=== PATIENT | female | born 1970 | race Caucasian/White ===

== ENCOUNTER 2017-07-22 14:32 | Inpatient (IN) | payer OTHER ==
[~2017-07-22] VITALS: Ht 165.1 cm; Wt 100.8 kg
[~2017-07-22 14:32] MED LIST changes: -ALLEGRA ALLERG180 MG PO; -BASAGLAR K100 UNIT/1 SC; -Benadryl 50 mg50 MG PO; -Cardizem CD 24240 MG PO; -DILT120 PO; -DULO60 PO; -Novolog Fl100 UNIT/1 SC; -Pepcid40 MG PO; -Women's Daily1 EACH PO; -XARELTO20 MG PO
[2017-07-22 15:25] LABS: Chloride (POC) 98 mmol/L (98-108); Creatinine (POC) 0.6 mg/dL (0.6-1.0); Glucose (ISTAT POC) 469 mg/dL (70-99); Hemoglobin (POC) 15.3 g/dL (12.0-16.0); Potassium (POC) 4.2 mmol/L (3.5-5.5); Sodium (POC) 134 mmol/L (135-148); Total CO2 (POC) 26 mmol/L (21-32)
[2017-07-22 15:31] LABS: BASOPHILS ABSOLUTE AUTO 0.03 K/mm3 (0.00-0.23); BASOPHILS PERCENT AUTO 1 % (0-2); EOSINOPHILS ABSOLUTE AUTO 0.08 K/mm3 (0.00-0.68); EOSINOPHILS PERCENT AUTO 1 % (0-6); Hematocrit 43.1 % (33.0-51.0); Hemoglobin 14.8 g/dL (11.5-16.0); IMMATURE GRAN ABSOLUTE AUTO 0.02 K/mm3 (0.00-0.10); IMMATURE GRAN PERCENT AUTO 0 % (0-1); LYMPHOCYTES ABSOLUTE AUTO 1.66 K/mm3 (0.84-5.20); LYMPHOCYTES PERCENT AUTO 26 % (21-46); MONOCYTES ABSOLUTE AUTO 0.49 K/mm3 (0.16-1.47); MONOCYTES PERCENT AUTO 8 % (4-13); Mean Corpuscular HGB Conc 34.3 g/dL (31.5-36.5); Mean Corpuscular Volume 96 fL (80-100); Mean Platelet Volume 10.6 fL (9.1-12.4); NEUTROPHILS ABSOLUTE AUTO 4.08 K/mm3 (1.96-9.15); NEUTROPHILS PERCENT AUTO 64 % (41-73); Platelet Count 175 K/mm3 (150-400); RDW Coefficient Variation 12.9 % (11.7-14.2); RDW Standard Deviation 46.3 fL (35.1-46.3); Red Blood Cell Count 4.49 M/mm3 (3.80-5.20); White Blood Cell Count 6.36 K/mm3 (4.00-11.30)
[2017-07-22 15:55] LABS: Alanine Aminotransfer (ALT/SGP 120 U/L (12-78); Albumin, Blood 2.9 g/dL (3.4-5.0); Albumin/Globulin Ratio 0.7 (0.8-1.8); Alk Phos 274 U/L (50-136); Anion Gap 9 mmol/L (6-16); Aspartate Aminotrans (AST/SGOT 119 U/L (12-37); Bilirubin, Total 0.4 mg/dL (0.1-1.0); Blood Urea Nitrogen 12 mg/dL (8-24); Bun/Creatinine Ratio 19.9 (12.0-20.0); CO2, Blood 25 mmol/L (21-32); Calcium, Blood 8.7 mg/dL (8.5-10.1); Chloride, Blood 100 mmol/L (98-108); Globulin, Blood 4.3 g/dL (2.2-4.0); Glomerular Filtration Rate >60 (60-); Glucose, Blood 442 mg/dL (70-99); Potassium, Blood 4.2 mmol/L (3.5-5.5); Sodium, Blood 134 mmol/L (136-145); Total Protein, Blood 7.2 g/dL (6.4-8.2); Troponin I <0.015 ng/mL (0.000-0.040)
[2017-07-22 16:01] LABS: Source, Urine Clean Catch
[2017-07-22 16:06] LABS: Bilirubin, Urine Neg (Neg); Blood, Urine Neg (Neg); Glucose Qualitative, Urine 4+ (Neg); Ketones, Urine Neg (Neg); Leukocyte Esterase, Urine Neg (Neg); Nitrite, Urine Neg (Neg); Protein, Urine Neg (Neg); Urobilinogen, Urine NORM (Normal)
[2017-07-22 16:11] LABS: Color, Urine Pale Yellow (P-Yellow)
[2017-07-22 16:12] LABS: Appearance, Urine Clear (Clear)
[2017-07-23 04:19] LABS: BASOPHILS ABSOLUTE AUTO 0.02 K/mm3 (0.00-0.23); BASOPHILS PERCENT AUTO 0 % (0-2); EOSINOPHILS ABSOLUTE AUTO 0.08 K/mm3 (0.00-0.68); EOSINOPHILS PERCENT AUTO 2 % (0-6); Hematocrit 37.9 % (33.0-51.0); Hemoglobin 12.5 g/dL (11.5-16.0); IMMATURE GRAN ABSOLUTE AUTO 0.03 K/mm3 (0.00-0.10); IMMATURE GRAN PERCENT AUTO 1 % (0-1); LYMPHOCYTES ABSOLUTE AUTO 2.02 K/mm3 (0.84-5.20); LYMPHOCYTES PERCENT AUTO 38 % (21-46); MONOCYTES ABSOLUTE AUTO 0.43 K/mm3 (0.16-1.47); MONOCYTES PERCENT AUTO 8 % (4-13); Mean Corpuscular HGB 32.6 pg (26.0-34.0); Mean Platelet Volume 10.2 fL (9.1-12.4); NEUTROPHILS ABSOLUTE AUTO 2.79 K/mm3 (1.96-9.15); NEUTROPHILS PERCENT AUTO 52 % (41-73); Platelet Count 149 K/mm3 (150-400); RDW Coefficient Variation 13.2 % (11.7-14.2); RDW Standard Deviation 47.8 fL (35.1-46.3); Red Blood Cell Count 3.84 M/mm3 (3.80-5.20); White Blood Cell Count 5.37 K/mm3 (4.00-11.30)
[2017-07-23 04:21] LABS: Mean Corpuscular Volume 99 fL (80-100)
[2017-07-23 04:44] LABS: Anion Gap 8 mmol/L (6-16); Blood Urea Nitrogen 10 mg/dL (8-24); Bun/Creatinine Ratio 19.2 (12.0-20.0); CO2, Blood 24 mmol/L (21-32); Calcium, Blood 7.7 mg/dL (8.5-10.1); Chloride, Blood 103 mmol/L (98-108); Creatinine, Blood 0.52 mg/dL (0.40-1.00); Glomerular Filtration Rate >60 (60-); Glucose, Blood 384 mg/dL (70-99); Potassium, Blood 3.9 mmol/L (3.5-5.5); Sodium, Blood 135 mmol/L (136-145)
[2017-07-23 04:46] LABS: Thyroid Stimulating Hormone 0.747 uIU/mL (0.360-4.800)
[2017-07-23 06:52] LABS: Alanine Aminotransfer (ALT/SGP 108 U/L (12-78); Albumin, Blood 2.6 g/dL (3.4-5.0); Albumin/Globulin Ratio 0.8 (0.8-1.8); Alk Phos 220 U/L (50-136); Aspartate Aminotrans (AST/SGOT 96 U/L (12-37); Bilirubin, Direct <0.1 mg/dL (0.0-0.3); Bilirubin, Indirect Unable to Calculate mg/dL (0.1-0.7); Bilirubin, Total 0.4 mg/dL (0.1-1.0); Globulin, Blood 3.3 g/dL (2.2-4.0); Total Protein, Blood 5.9 g/dL (6.4-8.2)
[2017-07-23] MEDS ORDERED: LEVEMIR FL100 UNIT/1 SC (18:00)
[2017-07-23] MEDS ORDERED: Cardizem CD 24240 MG PO (18:03)
[2017-07-23] MEDS ORDERED: METF500 PO (18:04)
[2018-03-02] MEDS ORDERED: XARELTO20 MG PO (15:06)
[2018-03-02] MEDS ORDERED: DILT120 PO (15:06)
[2018-03-02] MEDS ORDERED: BASAGLAR K100 UNIT/1 SC ×2 (15:07→15:08)
[2018-03-02] MEDS ORDERED: ALLEGRA ALLERG180 MG PO (15:07)
[2018-03-02] MEDS ORDERED: DULO60 PO (15:07)
[2018-03-02] MEDS ORDERED: Novolog Fl100 UNIT/1 SC (15:08)
[2018-03-02] MEDS ORDERED: Women's Daily1 EACH PO (15:09)
[2018-03-02] MEDS ORDERED: Benadryl 50 mg50 MG PO (17:26)
[2018-03-02] MEDS ORDERED: Pepcid40 MG PO (17:26)
[2018-03-02] MEDS ORDERED: Ultram50 MG PO (17:26)
== END 2017-07-23 18:34 | disposition home or self-care (01) | DRG 310 ==
LOC: ER 14:32 → ICUW 17:55
PROVIDERS: Emergency Medicine; Hospitalist; Internal Medicine
PROC: 3E0234Z Introduction of Serum, Toxoid and Vaccine into Muscle, Percutaneous Approach (ICD-10-PCS; principal; 2017-07-23)
DX: I48.91 Unspecified atrial fibrillation (principal); E11.65 Type 2 diabetes mellitus with hyperglycemia; K76.0 Fatty (change of) liver, not elsewhere classified; I10 Essential (primary) hypertension; Z23 Encounter for immunization; F32.9 Major depressive disorder, single episode, unspecified; F17.210 Nicotine dependence, cigarettes, uncomplicated; Z78.0 Asymptomatic menopausal state; I25.2 Old myocardial infarction; Z79.4 Long term (current) use of insulin; Z79.899 Other long term (current) drug therapy; Z88.1 Allergy status to other antibiotic agents; Z88.5 Allergy status to narcotic agent; Z88.0 Allergy status to penicillin; Z88.8 Allergy status to other drugs, medicaments and biological substances
CPT/HCPCS: 36415; 71046; 80047; 80048; 80053; 80076; 80400; 81003; 82010; 82533; 82947; 83001; 84443; 84484; 85014; 85025; 87081; 93306; 96365; 96366; 99285; G0008; J0834; J1815; J7030; Q2038

== ENCOUNTER → 2017-07-22 | Outpatient (CLI) | payer OTHER ==
[~2017-07-22] MED LIST: ALBU90OI; ALBU90OI61 INH; ALLEGRA ALLERG180 MG PO; ALPR.25 PO; ALPR.5 PO; ATEN50 PO; BASAGLAR K100 UNIT/1 SC; BIOTIN5 MG PO; Benadryl 50 mg50 MG PO; CAMPHETO TOP; CEPH500 PO; CETI5 PO; CIPDEXSU OT; CIPR500 PO; CLIN300 PO; CYCL10 PO; Cardizem CD 24240 MG PO; DILT120 PO; DIPATR PO; DULO30 PO; DULO60 PO; FAMO20 PO; FENO48; FLU; GABA100 PO; HYDACE5 PO; IBUP600 PO; IBUP800 PO; INSDET100 SC; INSU100I6; INSULANPEN; LEVEMIR FL100 UNIT/1; LEVEMIR FL100 UNIT/1 SC; LORA1 PO; Lyrica300 MG PO; MECL25 PO; METF500 PO; METO10 PO; NAPR250 PO; NAPR500 PO; Novolog Fl100 UNIT/1 SC; OXYACE5T PO; PROACE100 PO; PROC5 PO; PROM25 PO; Pepcid40 MG PO; RXALBOI INH; RXANTBENOT AU; RXONDA4ODT MM; RXOXYACE PO; RXTRAM50 PO; SULTRIDS PO; SULTRISS PO; TRAM50 PO; TRIHYD253B; Tylenol325 MG PO; Ultram50 MG PO; Women's Daily1 EACH PO; XARELTO20 MG PO; Zofran Odt4 MG SL; [UNRECOGNIZED DRUG - OTHER]; [UNRECOGNIZED DRUG - OTHER] NS; [UNRECOGNIZED DRUG - REMARK]
[2017-07-22 13:23] LABS: Bilirubin, Urine Neg (Neg); Blood, Urine Neg (Neg); Glucose Qualitative, Urine 4+ (Neg); Ketones, Urine Neg (Neg); Leukocyte Esterase, Urine 1+ (Neg); Nitrite, Urine Neg (Neg); Protein, Urine Neg (Neg); Urobilinogen, Urine NORM (Normal)
[2017-07-22 13:30] LABS: Appearance, Urine Clear (Clear); Color, Urine Yellow (P-Yellow)
[2017-07-22 13:32] LABS: Bacteria Few /hpf; Red Blood Cells, Urine 0-2 /hpf (0-2); Squamous Epithelial Cells Few /hpf (Few)
== END | disposition home or self-care (01) ==
LOC: LAB 13:11
PROVIDERS: Internal Medicine Hematology & Oncology
DX: R10.2 Pelvic and perineal pain (principal)
CPT/HCPCS: 81001; 87077; 87086; 87186

== ENCOUNTER 2018-09-06 17:10 | Emergency (ER) | payer OTHER ==
[~2018-09-06] VITALS: Ht 165.1 cm; Wt 90.7 kg
[~2018-09-06 17:10] MED LIST changes: +ALLEGRA ALLERG180 MG PO; +BASAGLAR K100 UNIT/1 SC; +Benadryl 50 mg50 MG PO; +Cardizem CD 24240 MG PO; +DILT120 PO; +Novolog100 UNIT/2 SC; +Pepcid40 MG PO; +Women's Daily1 EACH PO; +XARELTO20 MG PO
[2018-09-06 18:07] LABS: BASOPHILS ABSOLUTE AUTO 0.04 K/mm3 (0.00-0.23); BASOPHILS PERCENT AUTO 1 % (0-2); EOSINOPHILS PERCENT AUTO 1 % (0-6); Hematocrit 47.4 % (33.0-51.0); Hemoglobin 16.2 g/dL (11.5-16.0); IMMATURE GRAN ABSOLUTE AUTO 0.03 K/mm3 (0.00-0.10); IMMATURE GRAN PERCENT AUTO 0 % (0-1); LYMPHOCYTES ABSOLUTE AUTO 3.56 K/mm3 (0.84-5.20); LYMPHOCYTES PERCENT AUTO 41 % (21-46); MONOCYTES ABSOLUTE AUTO 0.65 K/mm3 (0.16-1.47); MONOCYTES PERCENT AUTO 8 % (4-13); Mean Corpuscular HGB 32.1 pg (26.0-34.0); Mean Corpuscular HGB Conc 34.2 g/dL (31.5-36.5); Mean Corpuscular Volume 94 fL (80-100); Mean Platelet Volume 10.1 fL (9.1-12.4); NEUTROPHILS ABSOLUTE AUTO 4.21 K/mm3 (1.96-9.15); NEUTROPHILS PERCENT AUTO 49 % (41-73); Platelet Count 250 K/mm3 (150-400); RDW Coefficient Variation 13.1 % (11.7-14.2); RDW Standard Deviation 44.8 fL (35.1-46.3); Red Blood Cell Count 5.05 M/mm3 (3.80-5.20); White Blood Cell Count 8.59 K/mm3 (4.00-11.30)
[2018-09-06] MEDS ORDERED: DULO60 PO (18:23)
[2018-09-06] MEDS ORDERED: Simvastatin10 MG PO (18:24)
[2018-09-06] MEDS ORDERED: NAPR220 PO (18:24)
[2018-09-06] MEDS ORDERED: ACET500 PO (18:25)
[2018-09-06 18:28] LABS: Alanine Aminotransfer (ALT/SGP 57 U/L (12-78); Albumin, Blood 3.5 g/dL (3.4-5.0); Albumin/Globulin Ratio 0.9 (0.8-1.8); Alk Phos 150 U/L (50-136); Anion Gap 7 mmol/L (6-16); Aspartate Aminotrans (AST/SGOT 55 U/L (12-37); Bilirubin, Total 0.6 mg/dL (0.1-1.0); Blood Urea Nitrogen 9 mg/dL (8-24); Bun/Creatinine Ratio 12.7 (12.0-20.0); CO2, Blood 25 mmol/L (21-32); Calcium, Blood 9.4 mg/dL (8.5-10.1); Chloride, Blood 109 mmol/L (98-108); Creatinine, Blood 0.71 mg/dL (0.40-1.00); Globulin, Blood 4.1 g/dL (2.2-4.0); Glomerular Filtration Rate >60 (60-); Glucose, Blood 143 mg/dL (70-99); Potassium, Blood 3.8 mmol/L (3.5-5.5); Sodium, Blood 141 mmol/L (136-145); Total Protein, Blood 7.6 g/dL (6.4-8.2)
[2018-09-06] MEDS ORDERED: GAVILAX17 GM PO (18:28)
[2018-09-06 18:30] LABS: Troponin I <0.015 ng/mL (0.000-0.040)
[2018-09-06] MEDS ORDERED: IBUP400 PO (19:57)
[2018-09-06] MEDS ORDERED: Aspirin EC81 MG PO (20:01)
== END 2018-09-06 22:25 | disposition home or self-care (01) ==
LOC: ER 17:10
PROVIDERS: Emergency Medicine
DX: I48.91 Unspecified atrial fibrillation (principal); E11.9 Type 2 diabetes mellitus without complications; I25.10 Atherosclerotic heart disease of native coronary artery without angina pectoris; I10 Essential (primary) hypertension; G43.909 Migraine, unspecified, not intractable, without status migrainosus; F17.200 Nicotine dependence, unspecified, uncomplicated; F43.10 Post-traumatic stress disorder, unspecified; Z87.442 Personal history of urinary calculi; Z79.4 Long term (current) use of insulin; Z79.899 Other long term (current) drug therapy
CPT/HCPCS: 36415; 70450; 71046; 80053; 83690; 83735; 84484; 85025; 93005; 93010; 96365; 96375; 99285-25; J2060; J3475

== ENCOUNTER 2018-12-08 07:29 | Day surgery (SDC) | payer OTHER ==
[~2018-12-08] VITALS: Ht 165.1 cm; Wt 94.3 kg
[~2018-12-08 07:29] MED LIST changes: +ACET500 PO; +Aspirin EC81 MG PO; +BIOTIN5000 MC1 SL; +DULO60 PO; +GAVILAX17 GM PO; +IBUP400 PO; +NAPR220 PO; +Simvastatin10 MG PO; +XYZAL5 MG PO
[2018-12-08] MEDS ORDERED: CLINGEL (08:04)
--- NOTE | 2018-12-08 08:22 | NUR ---
12/08/18 [address] QUINTEROS ABOUT PT'S CBG 453
== END 2018-12-08 08:58 | disposition home or self-care (01) ==
LOC: ORSCSDS 07:29
DX: K92.1 Melena (principal); K21.9 Gastro-esophageal reflux disease without esophagitis; R13.10 Dysphagia, unspecified; R11.2 Nausea with vomiting, unspecified; R15.0 Incomplete defecation; Z53.9 Procedure and treatment not carried out, unspecified reason
CPT/HCPCS: 82947; J7120

== ENCOUNTER 2019-01-11 11:10 | Emergency (ER) | payer OTHER ==
[~2019-01-11] VITALS: Ht 165.1 cm; Wt 89.8 kg
[~2019-01-11 11:10] MED LIST changes: +CLINGEL
[2019-01-11] MEDS ORDERED: BASAGLAR K100 UNIT/1 SC (11:37)
[2019-01-11 11:56] LABS: BASOPHILS ABSOLUTE AUTO 0.02 K/mm3 (0.00-0.23); BASOPHILS PERCENT AUTO 1 % (0-2); EOSINOPHILS ABSOLUTE AUTO 0.08 K/mm3 (0.00-0.68); EOSINOPHILS PERCENT AUTO 2 % (0-6); Hematocrit 40.4 % (33.0-51.0); Hemoglobin 13.7 g/dL (11.5-16.0); IMMATURE GRAN ABSOLUTE AUTO 0.01 K/mm3 (0.00-0.10); IMMATURE GRAN PERCENT AUTO 0 % (0-1); LYMPHOCYTES ABSOLUTE AUTO 1.38 K/mm3 (0.84-5.20); LYMPHOCYTES PERCENT AUTO 34 % (21-46); MONOCYTES ABSOLUTE AUTO 0.45 K/mm3 (0.16-1.47); MONOCYTES PERCENT AUTO 11 % (4-13); Mean Corpuscular HGB 31.8 pg (26.0-34.0); Mean Corpuscular HGB Conc 33.9 g/dL (31.5-36.5); Mean Corpuscular Volume 94 fL (80-100); NEUTROPHILS ABSOLUTE AUTO 2.11 K/mm3 (1.96-9.15); NEUTROPHILS PERCENT AUTO 52 % (41-73); Platelet Count 116 K/mm3 (150-400); RDW Coefficient Variation 12.6 % (11.7-14.2); RDW Standard Deviation 43.9 fL (35.1-46.3); Red Blood Cell Count 4.31 M/mm3 (3.80-5.20); White Blood Cell Count 4.05 K/mm3 (4.00-11.30)
[2019-01-11 12:39] LABS: Source, Urine Voided
[2019-01-11 12:49] LABS: Magnesium, Blood 1.9 mg/dL (1.6-2.4)
[2019-01-11 12:51] LABS: Thyroid Stimulating Hormone 1.13 uIU/mL (0.360-4.800)
[2019-01-11 12:53] LABS: Alanine Aminotransfer (ALT/SGP 42 U/L (12-78); Albumin, Blood 2.9 g/dL (3.4-5.0); Albumin/Globulin Ratio 0.8 (0.8-1.8); Alk Phos 119 U/L (50-136); Anion Gap 8 mmol/L (6-16); Aspartate Aminotrans (AST/SGOT 40 U/L (12-37); Bilirubin, Total 0.3 mg/dL (0.1-1.0); Blood Urea Nitrogen 12 mg/dL (8-24); Bun/Creatinine Ratio 20.7 (12.0-20.0); CO2, Blood 26 mmol/L (21-32); Calcium, Blood 8.5 mg/dL (8.5-10.1); Chloride, Blood 100 mmol/L (98-108); Creatinine, Blood 0.58 mg/dL (0.40-1.00); Globulin, Blood 3.5 g/dL (2.2-4.0); Glomerular Filtration Rate >60 (60-); Potassium, Blood 4.5 mmol/L (3.5-5.5); Sodium, Blood 134 mmol/L (136-145); Total Protein, Blood 6.4 g/dL (6.4-8.2)
[2019-01-11 12:58] LABS: Glucose, Blood 640 mg/dL (70-99)
[2019-01-11 13:19] LABS: Bilirubin, Urine Neg (Neg); Blood, Urine Neg (Neg); Glucose Qualitative, Urine 4+ (Neg); Ketones, Urine 1+ (Neg); Leukocyte Esterase, Urine Neg (Neg); Nitrite, Urine Neg (Neg); Protein, Urine Neg (Neg); Specific Gravity, Urine 1.005 (1.003-1.022); Urobilinogen, Urine NORM (Normal); pH, Urine 6.5 (5.0-8.0)
[2019-01-11 13:20] LABS: Appearance, Urine Clear (Clear); Color, Urine Yellow (P-Yellow)
[2019-01-11 13:52] LABS: U Amphetamine Screen Not Detected; U Barbituate Screen Not Detected; U Benzodiazapine Screen Not Detected; U Buprenorphine Screen Not Detected; U Cannabinoids Screen Not Detected; U Cocaine Screen Not Detected; U Methadone Screen Not Detected; U Methamphetamine Screen Not Detected; U Opiates Screen Not Detected; U Oxycodone Screen Not Detected; U Phencyclidine Screen Not Detected
[2019-01-11 13:53] LABS: U Propoxyphene Screen Not Detected
== END 2019-01-11 15:55 | disposition home or self-care (01) ==
LOC: ER 11:10
PROVIDERS: Emergency Medicine
DX: E11.65 Type 2 diabetes mellitus with hyperglycemia (principal); Z88.8 Allergy status to other drugs, medicaments and biological substances; Z88.0 Allergy status to penicillin; Z88.5 Allergy status to narcotic agent; Z91.048 Other nonmedicinal substance allergy status; Z79.4 Long term (current) use of insulin; Z79.899 Other long term (current) drug therapy; Z79.82 Long term (current) use of aspirin; I10 Essential (primary) hypertension; G43.909 Migraine, unspecified, not intractable, without status migrainosus; I48.91 Unspecified atrial fibrillation; F43.10 Post-traumatic stress disorder, unspecified; F17.200 Nicotine dependence, unspecified, uncomplicated
CPT/HCPCS: 36415; 71046; 80053; 81003; 82947; 83735; 83880; 84443; 84484; 84702; 85025; 85379; 93005; 93010; 96374; 99285-25; J1815; J2405

== ENCOUNTER 2019-02-02 16:57 | Observation (INO) | payer OTHER ==
[~2019-02-02] VITALS: Ht 165.1 cm; Wt 95.3 kg
[2019-02-02 19:02] LABS: BASOPHILS ABSOLUTE AUTO 0.03 K/mm3 (0.00-0.23); BASOPHILS PERCENT AUTO 0 % (0-2); EOSINOPHILS ABSOLUTE AUTO 0.09 K/mm3 (0.00-0.68); EOSINOPHILS PERCENT AUTO 1 % (0-6); Hematocrit 42.9 % (33.0-51.0); Hemoglobin 14.7 g/dL (11.5-16.0); IMMATURE GRAN ABSOLUTE AUTO 0.02 K/mm3 (0.00-0.10); IMMATURE GRAN PERCENT AUTO 0 % (0-1); LYMPHOCYTES ABSOLUTE AUTO 2.69 K/mm3 (0.84-5.20); LYMPHOCYTES PERCENT AUTO 35 % (21-46); MONOCYTES PERCENT AUTO 9 % (4-13); Mean Corpuscular HGB 31.9 pg (26.0-34.0); Mean Corpuscular HGB Conc 34.3 g/dL (31.5-36.5); Mean Corpuscular Volume 93 fL (80-100); Mean Platelet Volume 11.4 fL (9.1-12.4); NEUTROPHILS ABSOLUTE AUTO 4.21 K/mm3 (1.96-9.15); NEUTROPHILS PERCENT AUTO 54 % (41-73); Platelet Count 148 K/mm3 (150-400); RDW Coefficient Variation 12.6 % (11.7-14.2); RDW Standard Deviation 43.1 fL (35.1-46.3); Red Blood Cell Count 4.61 M/mm3 (3.80-5.20); White Blood Cell Count 7.74 K/mm3 (4.00-11.30)
[2019-02-02 19:24] LABS: Anion Gap 6 mmol/L (6-16); Blood Urea Nitrogen 14 mg/dL (8-24); Bun/Creatinine Ratio 20.9 (12.0-20.0); CO2, Blood 27 mmol/L (21-32); Calcium, Blood 9.8 mg/dL (8.5-10.1); Chloride, Blood 97 mmol/L (98-108); Creatinine, Blood 0.67 mg/dL (0.40-1.00); Glomerular Filtration Rate >60 (60-); Glucose, Blood 431 mg/dL (70-99); Sodium, Blood 130 mmol/L (136-145)
--- NOTE | 2019-02-03 04:45 | NUR ---
SHIFT SUMMARY RECEIVED FROM FROM YUS[facility] STEVENSON, ED. ARRIVED TO MEDICAL FLOOR BY STRETCHER @ [id number]. ORIENTED TO ROOM AND CALL SYSTEM. A/O, ABLE TO MAKE NEEDS KNOWN. COOPERATIVE WITH CARE. ANSWERS QUESTIONS APPROPRIATELY. C/O PAIN/DISCOMFORT TO R HAND/FOREARM. PICTURE DOCUMENTATION COMPLETED AND IN CHART. IV ABX INFUSED WITHOUT COMPLICATION. NO ACUTE CHANGES OVERNIGHT. VSS/AFEBRILE. 1P ASSIST TO BATHROOM. APPEARED TO REST OFF AND ON. WCTM. BED IN LOWEST POSITION. CALL LIGHT AND BELONGINGS WITHIN REACH. REPORT TO ONCPELON RN.
[2019-02-03 05:37] LABS: BASOPHILS ABSOLUTE AUTO 0.04 K/mm3 (0.00-0.23); BASOPHILS PERCENT AUTO 1 % (0-2); EOSINOPHILS ABSOLUTE AUTO 0.09 K/mm3 (0.00-0.68); EOSINOPHILS PERCENT AUTO 2 % (0-6); Hematocrit 38.5 % (33.0-51.0); Hemoglobin 12.8 g/dL (11.5-16.0); IMMATURE GRAN ABSOLUTE AUTO 0.03 K/mm3 (0.00-0.10); IMMATURE GRAN PERCENT AUTO 1 % (0-1); LYMPHOCYTES PERCENT AUTO 38 % (21-46); MONOCYTES ABSOLUTE AUTO 0.47 K/mm3 (0.16-1.47); MONOCYTES PERCENT AUTO 9 % (4-13); Mean Corpuscular HGB 31.7 pg (26.0-34.0); Mean Corpuscular HGB Conc 33.2 g/dL (31.5-36.5); Mean Corpuscular Volume 95 fL (80-100); Mean Platelet Volume 11.6 fL (9.1-12.4); NEUTROPHILS ABSOLUTE AUTO 2.59 K/mm3 (1.96-9.15); NEUTROPHILS PERCENT AUTO 50 % (41-73); Platelet Count 113 K/mm3 (150-400); RDW Coefficient Variation 12.5 % (11.7-14.2); Red Blood Cell Count 4.04 M/mm3 (3.80-5.20); White Blood Cell Count 5.22 K/mm3 (4.00-11.30)
[2019-02-03 05:59] LABS: Alanine Aminotransfer (ALT/SGP 35 U/L (12-78); Albumin, Blood 2.9 g/dL (3.4-5.0); Albumin/Globulin Ratio 0.8 (0.8-1.8); Alk Phos 138 U/L (50-136); Anion Gap 6 mmol/L (6-16); Aspartate Aminotrans (AST/SGOT 17 U/L (12-37); Bilirubin, Total 0.3 mg/dL (0.1-1.0); Blood Urea Nitrogen 16 mg/dL (8-24); Bun/Creatinine Ratio 26.4 (12.0-20.0); CO2, Blood 28 mmol/L (21-32); Calcium, Blood 8.7 mg/dL (8.5-10.1); Chloride, Blood 99 mmol/L (98-108); Creatinine, Blood 0.61 mg/dL (0.40-1.00); Globulin, Blood 3.6 g/dL (2.2-4.0); Glomerular Filtration Rate >60 (60-); Glucose, Blood 380 mg/dL (70-99); Potassium, Blood 3.9 mmol/L (3.5-5.5); Sodium, Blood 133 mmol/L (136-145); Total Protein, Blood 6.5 g/dL (6.4-8.2)
[2019-02-03] MEDS ORDERED: BENADRYL25 MG PO (11:19)
[2019-02-03] MEDS ORDERED: CIPR500 PO (11:19)
[2019-02-03] MEDS ORDERED: Culturelle1 CAP PO (11:20)
[2019-02-03] MEDS ORDERED: METR500 PO (11:21)
[2019-02-03] MEDS ORDERED: Percocet 5-3251 EACH PO (11:22)
--- NOTE | 2019-02-03 11:55 | NUR ---
DISCHARGE DISCHARGE INSTRUCTIONS, FOLLOW UP APPOINTMENT AND MEDICATION LIST REVIEWED WITH PT. QUESTIONS/CONCERNS ANSWERED. HARD COPY SCRIP FOR PERCOCETT GIVEN TO PT, OTHER SCRIPS FAXED TO [facility] PER PT PREFERENCE. PT ESCORTED OUT VIA W/C BY LUIS
== END 2019-02-03 11:54 | disposition home or self-care (01) ==
LOC: ER 16:57 → MEDS 16:58
PROVIDERS: Nurse Practitioner Acute Care; Physician Assistant; ADMIT Internal Medicine
DX: S51.851A Open bite of right forearm, initial encounter (principal); S61.451A Open bite of right hand, initial encounter; L03.113 Cellulitis of right upper limb; E10.9 Type 1 diabetes mellitus without complications; I10 Essential (primary) hypertension; I48.2 Chronic atrial fibrillation; I25.10 Atherosclerotic heart disease of native coronary artery without angina pectoris; F32.9 Major depressive disorder, single episode, unspecified; G43.909 Migraine, unspecified, not intractable, without status migrainosus; F17.210 Nicotine dependence, cigarettes, uncomplicated; Z23 Encounter for immunization; Z79.899 Other long term (current) drug therapy; Z79.82 Long term (current) use of aspirin; Z79.51 Long term (current) use of inhaled steroids; Z91.048 Other nonmedicinal substance allergy status; Z88.8 Allergy status to other drugs, medicaments and biological substances; Z88.0 Allergy status to penicillin; Z88.5 Allergy status to narcotic agent; Z91.09 Other allergy status, other than to drugs and biological substances; W55.01XA Bitten by cat, initial encounter
CPT/HCPCS: 36415; 73130; 80048; 80053; 82947; 85025; 87040; 90471; 90714; 96365; 96366; 96367; 96375; 99284-25; A9270; G0378; J0744; J2405; J3010; J7030; J7050

== ENCOUNTER 2020-01-05 09:26 | Day surgery (SDC) | payer OTHER ==
[~2020-01-05 09:26] MED LIST changes: +ADMELOG100 UNIT/2 SC; +ATOR40TA PO; +BASAGLAR K100 UNIT/4 SC; +BENADRYL25 MG PO; +Culturelle1 CAP PO; +Cymbalta30 MG PO; +DULOXETINE HCL60 M1 PO; +LOSA50 PO; +METO50ER PO; +METR500 PO; +Midodrine HCl5 MG PO; +Percocet 5-3251 EACH PO
--- NOTE | 2020-01-05 11:00 | NUR ---
PT PASSED OUT AFTER PROCEDURE IN RADIOLOGY WHEN GETTING UP TO STAND. . PT MOVED TO BED AND TRANSFERRED TO DAY SURGERY FOR ADDITIONAL MONITORING. DR. GANDHI CONTACTED AND GIVEN ORDERS TO CONTINUE MONITORING PT. VITALS WNL.
--- NOTE | 2020-01-05 11:28 | NUR ---
PT IN DAY SURGERY, SITTING UP, TALKING AND COMMUNICATING NORMALLY. BP 127/60, P 81, O2 99% ON RA.
--- NOTE | 2020-01-05 12:15 | NUR ---
call to dr sanders after taking blood suregar that was too high to register on cbg machine. no new orders dr informed rn that patient could go home and treat blood sugar if stable on feet.
--- NOTE | 2020-01-05 12:16 | NUR ---
patinet up to bathroom slow but steady on feet did not pass out and feels much better than earlier. proceeded with discharge. patient discharged witha ll belongings and instructions.
== END 2020-01-05 22:55 | disposition home or self-care (01) ==
LOC: CT 09:26 → ORD 09:26 → CT 10:00 → ORD 22:55
DX: I48.0 Paroxysmal atrial fibrillation (principal); I25.10 Atherosclerotic heart disease of native coronary artery without angina pectoris; Z79.899 Other long term (current) drug therapy
CPT/HCPCS: 75574; 82947; Q9967

== ENCOUNTER 2020-03-09 14:22 | Emergency (ER) | payer OTHER ==
[~2020-03-09] VITALS: Ht 165.1 cm; Wt 95.2 kg
[2020-03-09 16:47] LABS: Source, Urine Clean Catch
[2020-03-09 16:53] LABS: Appearance, Urine Clear (Clear); Bilirubin, Urine Neg (Neg); Blood, Urine Neg (Neg); Color, Urine Yellow (P-Yellow); Glucose Qualitative, Urine 4+ (Neg); Ketones, Urine Neg (Neg); Leukocyte Esterase, Urine Neg (Neg); Nitrite, Urine Neg (Neg); Protein, Urine 1+ (Neg); Specific Gravity, Urine 1.015 (1.003-1.022); Urobilinogen, Urine 1+ (Normal)
[2020-03-09 17:00] LABS: BASOPHILS ABSOLUTE AUTO 0.05 K/mm3 (0.00-0.23); BASOPHILS PERCENT AUTO 1 % (0-2); EOSINOPHILS ABSOLUTE AUTO 0.23 K/mm3 (0.00-0.68); EOSINOPHILS PERCENT AUTO 3 % (0-6); Hematocrit 44.6 % (33.0-51.0); Hemoglobin 14.4 g/dL (11.5-16.0); IMMATURE GRAN ABSOLUTE AUTO 0.03 K/mm3 (0.00-0.10); IMMATURE GRAN PERCENT AUTO 0 % (0-1); LYMPHOCYTES ABSOLUTE AUTO 2.08 K/mm3 (0.84-5.20); LYMPHOCYTES PERCENT AUTO 31 % (21-46); MONOCYTES ABSOLUTE AUTO 0.48 K/mm3 (0.16-1.47); MONOCYTES PERCENT AUTO 7 % (4-13); Mean Corpuscular HGB 30.5 pg (26.0-34.0); Mean Corpuscular HGB Conc 32.3 g/dL (31.5-36.5); Mean Corpuscular Volume 95 fL (80-100); Mean Platelet Volume 10.6 fL (9.1-12.4); NEUTROPHILS ABSOLUTE AUTO 3.91 K/mm3 (1.96-9.15); NEUTROPHILS PERCENT AUTO 58 % (41-73); Platelet Count 185 K/mm3 (150-400); RDW Coefficient Variation 13.5 % (11.7-14.2); RDW Standard Deviation 47.4 fL (35.1-46.3); Red Blood Cell Count 4.72 M/mm3 (3.80-5.20); White Blood Cell Count 6.78 K/mm3 (4.00-11.30)
[2020-03-09] MEDS ORDERED: Amiodarone HCl200 MG PO (17:07)
[2020-03-09] MEDS ORDERED: PREG75 PO (17:07)
[2020-03-09 17:15] LABS: Anion Gap 5 mmol/L (6-16); Blood Urea Nitrogen 12 mg/dL (8-24); Bun/Creatinine Ratio 20.3 (12.0-20.0); CO2, Blood 30 mmol/L (21-32); Calcium, Blood 9.6 mg/dL (8.5-10.1); Chloride, Blood 105 mmol/L (98-108); Creatinine, Blood 0.59 mg/dL (0.40-1.00); Glomerular Filtration Rate >60 (60-); Glucose, Blood 239 mg/dL (70-99); Potassium, Blood 4.3 mmol/L (3.5-5.5); Sodium, Blood 140 mmol/L (136-145)
== END 2020-03-09 19:12 | disposition short-term general hospital (02) ==
LOC: ER 14:22
PROVIDERS: Student in an Organized Health Care Education/Training Program
DX: R53.1 Weakness (principal); E10.9 Type 1 diabetes mellitus without complications; F32.9 Major depressive disorder, single episode, unspecified; I48.20 Chronic atrial fibrillation, unspecified; I10 Essential (primary) hypertension; I25.10 Atherosclerotic heart disease of native coronary artery without angina pectoris; I25.2 Old myocardial infarction; E78.5 Hyperlipidemia, unspecified; F17.210 Nicotine dependence, cigarettes, uncomplicated; Z20.828 Contact with and (suspected) exposure to other viral communicable diseases; Z91.81 History of falling; Z79.01 Long term (current) use of anticoagulants; Z79.899 Other long term (current) drug therapy; Z88.0 Allergy status to penicillin; Z88.5 Allergy status to narcotic agent; Z91.09 Other allergy status, other than to drugs and biological substances; Z91.041 Radiographic dye allergy status; Z79.82 Long term (current) use of aspirin; Z87.442 Personal history of urinary calculi
CPT/HCPCS: 36415; 80048; 85025; 99285; U0004

== ENCOUNTER 2020-10-24 08:56 | Day surgery (SDC) | payer MEDICARE, OTHER ==
[~2020-10-24 08:56] MED LIST changes: +Amiodarone HCl200 MG PO; +MIRALAX17 G7 PO; +PREG200 PO; +PREG75 PO
[2020-10-24] MEDS ORDERED: MERIBIN5 MG PO (09:35)
== END 2020-10-24 10:00 | disposition home or self-care (01) ==
LOC: MHTC 08:56
DX: I25.118 Atherosclerotic heart disease of native coronary artery with other forms of angina pectoris (principal); I48.0 Paroxysmal atrial fibrillation; E11.9 Type 2 diabetes mellitus without complications; E78.5 Hyperlipidemia, unspecified; Z86.73 Personal history of transient ischemic attack (TIA), and cerebral infarction without residual deficits; Z87.891 Personal history of nicotine dependence; Z99.3 Dependence on wheelchair; Z79.4 Long term (current) use of insulin; Z79.01 Long term (current) use of anticoagulants

== ENCOUNTER 2020-12-19 18:44 | Emergency (ER) | payer OTHER ==
[~2020-12-19] VITALS: Ht 165.1 cm; Wt 81.7 kg
[~2020-12-19 18:44] MED LIST changes: +MERIBIN5 MG PO
[2020-12-19 21:09] LABS: BASOPHILS ABSOLUTE AUTO 0.04 K/mm3 (0.00-0.23); BASOPHILS PERCENT AUTO 1 % (0-2); EOSINOPHILS ABSOLUTE AUTO 0.18 K/mm3 (0.00-0.68); EOSINOPHILS PERCENT AUTO 3 % (0-6); Hematocrit 39.2 % (33.0-51.0); IMMATURE GRAN ABSOLUTE AUTO 0.03 K/mm3 (0.00-0.10); IMMATURE GRAN PERCENT AUTO 0 % (0-1); LYMPHOCYTES ABSOLUTE AUTO 1.63 K/mm3 (0.84-5.20); LYMPHOCYTES PERCENT AUTO 24 % (21-46); MONOCYTES PERCENT AUTO 10 % (4-13); Mean Corpuscular HGB 30.9 pg (26.0-34.0); Mean Corpuscular HGB Conc 33.2 g/dL (31.5-36.5); Mean Corpuscular Volume 93 fL (80-100); Mean Platelet Volume 10.8 fL (9.1-12.4); NEUTROPHILS ABSOLUTE AUTO 4.37 K/mm3 (1.96-9.15); NEUTROPHILS PERCENT AUTO 63 % (41-73); Platelet Count 153 K/mm3 (150-400); RDW Coefficient Variation 13.6 % (11.7-14.2); RDW Standard Deviation 46.3 fL (35.1-46.3); Red Blood Cell Count 4.21 M/mm3 (3.80-5.20); White Blood Cell Count 6.95 K/mm3 (4.00-11.30)
[2020-12-19 21:30] LABS: Alanine Aminotransfer (ALT/SGP 73 U/L (12-78); Albumin, Blood 2.8 g/dL (3.4-5.0); Albumin/Globulin Ratio 0.7 (0.8-1.8); Alk Phos 281 U/L (50-136); Anion Gap 6 mmol/L (6-16); Aspartate Aminotrans (AST/SGOT 82 U/L (12-37); Bilirubin, Total 0.5 mg/dL (0.1-1.0); Blood Urea Nitrogen 8 mg/dL (8-24); Bun/Creatinine Ratio 14.6 (12.0-20.0); CO2, Blood 26 mmol/L (21-32); Calcium, Blood 9.1 mg/dL (8.5-10.1); Chloride, Blood 102 mmol/L (98-108); Creatinine, Blood 0.55 mg/dL (0.40-1.00); Globulin, Blood 4.1 g/dL (2.2-4.0); Glomerular Filtration Rate >60 (60-); Glucose, Blood 120 mg/dL (70-99); Potassium, Blood 4.2 mmol/L (3.5-5.5); Sodium, Blood 134 mmol/L (136-145); Total Protein, Blood 6.9 g/dL (6.4-8.2)
[2020-12-19 22:18] LABS: Source, Urine Clean Catch
[2020-12-19 22:25] LABS: Bilirubin, Urine Neg (Neg); Blood, Urine Neg (Neg); Glucose Qualitative, Urine 2+ (Neg); Ketones, Urine Neg (Neg); Leukocyte Esterase, Urine 1+ (Neg); Nitrite, Urine Neg (Neg); Protein, Urine Neg (Neg); Urobilinogen, Urine 1+ (Normal); pH, Urine 6.5 (5.0-8.0)
[2020-12-19 22:38] LABS: Appearance, Urine Hazy (Clear); Color, Urine Yellow (P-Yellow)
[2020-12-19 22:39] LABS: Bacteria Few /hpf; Red Blood Cells, Urine Not Seen /hpf (0-2); Squamous Epithelial Cells Rare /hpf (Few); Yeast/Fungi Urine Many /hpf
[2020-12-19] MEDS ORDERED: NITR100CA PO (22:43)
== END 2020-12-19 22:56 | disposition home or self-care (01) ==
LOC: ER 18:44
PROVIDERS: Emergency Medicine; Physician Assistant
DX: B33.8 Other specified viral diseases (principal); I10 Essential (primary) hypertension; E10.8 Type 1 diabetes mellitus with unspecified complications; Z88.2 Allergy status to sulfonamides; Z88.5 Allergy status to narcotic agent; Z88.0 Allergy status to penicillin; Z79.899 Other long term (current) drug therapy; Z87.891 Personal history of nicotine dependence
CPT/HCPCS: 36415; 71045; 80053; 81001; 85025; 87086; 87106; 96374; 99284-25; J1885

== ENCOUNTER 2021-03-27 10:48 | Observation (INO) | payer OTHER ==
[~2021-03-27] VITALS: Ht 165.1 cm; Wt 123.2 kg
[~2021-03-27 10:48] MED LIST changes: +NITR100CA PO
[2021-03-27] MEDS ORDERED: PRED20 PO (12:42)
--- NOTE | 2021-03-27 17:59 | NUR ---
PT ARRIVED FROM [facility] POST ANGIO, PT WITH STENT PLACEMENT TO RCA X2. NO ACTIVE BLEEDING NOTED TO RT RADIAL SITE. DENIES CP OR SOB. PULSES STRONG AND INTACT. ANGIO SITE BEING RECOVERED AT THIS TIME. PT SITTING IN BED EATING DINNER LAUGHING AND VISITING WITH S/O AT BEDSIDE.
[2021-03-27] MEDS ORDERED: LEVSOD25 PO (20:33)
[2021-03-27] MEDS ORDERED: TRAM50 PO (20:34)
[2021-03-28 04:09] LABS: Anion Gap 7 mmol/L (6-16); Blood Urea Nitrogen 19 mg/dL (8-24); Bun/Creatinine Ratio 29.4 (12.0-20.0); CO2, Blood 27 mmol/L (21-32); Calcium, Blood 8.7 mg/dL (8.5-10.1); Chloride, Blood 103 mmol/L (98-108); Creatinine, Blood 0.65 mg/dL (0.40-1.00); Glomerular Filtration Rate >60 (60-); Glucose, Blood 384 mg/dL (70-99); Potassium, Blood 3.9 mmol/L (3.5-5.5); Sodium, Blood 137 mmol/L (136-145)
--- NOTE | 2021-03-28 07:20 | NUR ---
SHIFT SUMMARY PT ALERT AND ORIENTED X4. R RADIAL SITE C/D/I. NO COMPLAINTS OF PAIN. HR NSR 70'S AND BP STABLE. ON RA MAINTAINING SATS OVER 94%. HIGH BLOOD SUGARS INITIALLY, 453 @ 1956. ASLEEP MOST OF NIGHT. IN BED RESTING WITH CALL ALARM AT SIDE
[2021-03-28] MEDS ORDERED: CLOP75 PO (08:54)
--- NOTE | 2021-03-28 10:04 | NUR ---
PATIENT AND SO EDUCATED THE DISCHARGE INSTRUCTION, PATIENT TO BE DISCHARGED
--- NOTE | 2021-03-28 10:05 | NUR ---
LEFT HAND IV REMOVED, CANULA INTACT, PATIENT TOLERATED WITH EASE
--- NOTE | 2021-03-28 10:25 | NUR ---
PATIENT DISCAHRGED VIA PERSONAL W/C SO ACCOMPANYING PATIENT
== END 2021-03-28 10:30 | disposition home or self-care (01) ==
LOC: MHTC 10:48 → PCU 16:07
PROVIDERS: Internal Medicine Interventional Cardiology; ADMIT Internal Medicine Cardiovascular Disease
DX: I25.118 Atherosclerotic heart disease of native coronary artery with other forms of angina pectoris (principal); I10 Essential (primary) hypertension; I48.0 Paroxysmal atrial fibrillation; E11.9 Type 2 diabetes mellitus without complications; E03.9 Hypothyroidism, unspecified; E66.9 Obesity, unspecified; I67.9 Cerebrovascular disease, unspecified; Z79.4 Long term (current) use of insulin; Z79.01 Long term (current) use of anticoagulants; Z88.5 Allergy status to narcotic agent; Z88.0 Allergy status to penicillin; Z88.8 Allergy status to other drugs, medicaments and biological substances; Z87.891 Personal history of nicotine dependence; Z68.41 Body mass index [BMI] 40.0-44.9, adult
CPT/HCPCS: 36415; 76937; 80048; 82947; 85347; 93454; 93571; 99152; 99153; A9270; C1725; C1769; C1874; C1887; C1894; C9600; J1644; J1815; J2250; J3010; J7030; J7050; Q9967

== ENCOUNTER 2021-12-11 11:16 | Emergency (ER) | payer OTHER ==
[~2021-12-11] VITALS: Ht 165.1 cm; Wt 113.4 kg
[~2021-12-11 11:16] MED LIST changes: +CLOP75 PO; +LEVSOD25 PO; +PRED20 PO
== END 2021-12-11 15:32 | disposition home or self-care (01) ==
LOC: ER 11:16
DX: Z48.00 Encounter for change or removal of nonsurgical wound dressing (principal); I10 Essential (primary) hypertension; E10.9 Type 1 diabetes mellitus without complications; I25.10 Atherosclerotic heart disease of native coronary artery without angina pectoris; E78.5 Hyperlipidemia, unspecified; Z79.01 Long term (current) use of anticoagulants; Z79.4 Long term (current) use of insulin; Z79.899 Other long term (current) drug therapy; Z88.0 Allergy status to penicillin; Z88.5 Allergy status to narcotic agent; Z88.8 Allergy status to other drugs, medicaments and biological substances; Z91.09 Other allergy status, other than to drugs and biological substances; Z87.891 Personal history of nicotine dependence
CPT/HCPCS: 99283

== ENCOUNTER 2022-03-07 17:00 | Emergency (ER) | payer OTHER ==
[~2022-03-07] VITALS: Ht 165.1 cm; Wt 96.2 kg
[2022-03-07 18:37] LABS: BASOPHILS ABSOLUTE AUTO 0.03 K/mm3 (0.00-0.23); BASOPHILS PERCENT AUTO 1 % (0-2); EOSINOPHILS ABSOLUTE AUTO 0.07 K/mm3 (0.00-0.68); EOSINOPHILS PERCENT AUTO 2 % (0-6); Hematocrit 37.1 % (33.0-51.0); IMMATURE GRAN ABSOLUTE AUTO 0.01 K/mm3 (0.00-0.10); IMMATURE GRAN PERCENT AUTO 0 % (0-1); LYMPHOCYTES PERCENT AUTO 33 % (21-46); MONOCYTES ABSOLUTE AUTO 0.38 K/mm3 (0.16-1.47); MONOCYTES PERCENT AUTO 12 % (4-13); Mean Corpuscular HGB 30.1 pg (26.0-34.0); Mean Corpuscular HGB Conc 32.3 g/dL (31.5-36.5); Mean Corpuscular Volume 93 fL (80-100); NEUTROPHILS ABSOLUTE AUTO 1.72 K/mm3 (1.96-9.15); NEUTROPHILS PERCENT AUTO 52 % (41-73); RDW Coefficient Variation 14.9 % (11.7-14.2); RDW Standard Deviation 51.2 fL (35.1-46.3); Red Blood Cell Count 3.99 M/mm3 (3.80-5.20); White Blood Cell Count 3.31 K/mm3 (4.00-11.30)
[2022-03-07 18:43] LABS: Albumin, Blood 2.8 g/dL (3.4-5.0); Albumin/Globulin Ratio 0.8 (0.8-1.8); Bilirubin, Total 0.5 mg/dL (0.1-1.0); Bun/Creatinine Ratio 10.4 (12.0-20.0); Calcium, Blood 8.7 mg/dL (8.5-10.1); Creatinine, Blood 0.48 mg/dL (0.40-1.00); Globulin, Blood 3.6 g/dL (2.2-4.0); Magnesium, Blood 1.9 mg/dL (1.6-2.4); Potassium, Blood 3.4 mmol/L (3.5-5.5); Total Protein, Blood 6.4 g/dL (6.4-8.2)
[2022-03-07 18:48] LABS: International Normalized Ratio 1.01; Prothrombin Time Results 10.6 Sec (9.7-11.5)
[2022-03-07 18:57] LABS: Mean Platelet Volume 12.3 fL (9.1-12.4); Platelet Count 79 K/mm3 (150-400)
[2022-03-07 19:30] LABS: Source, Urine Clean Catch
[2022-03-07 19:59] LABS: Appearance, Urine Cloudy (Clear); Bilirubin, Urine Neg (Neg); Blood, Urine 1+ (Neg); Color, Urine Yellow (P-Yellow); Glucose Qualitative, Urine 4+ (Neg); Ketones, Urine Neg (Neg); Leukocyte Esterase, Urine 2+ (Neg); Nitrite, Urine Neg (Neg); Protein, Urine 1+ (Neg); Specific Gravity, Urine 1.015 (1.003-1.022); Urobilinogen, Urine NORM (Normal)
[2022-03-07 20:42] LABS: White Blood Cells, Urine 25-50 /hpf (0-5); Yeast/Fungi Urine Many /hpf
[2022-03-07 20:43] LABS: Squamous Epithelial Cells Mod /hpf (Few)
[2022-03-07 20:44] LABS: Bacteria Mod /hpf; Mucus Light (0-Heavy); Red Blood Cells, Urine 0-2 /hpf (0-2)
== END 2022-03-07 23:54 | disposition home or self-care (01) ==
LOC: ER 17:00
PROVIDERS: Physician Assistant
DX: R53.1 Weakness (principal); R53.83 Other fatigue; R53.81 Other malaise; B37.49 Other urogenital candidiasis; I10 Essential (primary) hypertension; E10.9 Type 1 diabetes mellitus without complications; I25.10 Atherosclerotic heart disease of native coronary artery without angina pectoris; I25.2 Old myocardial infarction; Z88.8 Allergy status to other drugs, medicaments and biological substances; Z88.0 Allergy status to penicillin; Z88.5 Allergy status to narcotic agent; Z91.09 Other allergy status, other than to drugs and biological substances; Z87.891 Personal history of nicotine dependence; Z79.899 Other long term (current) drug therapy; Z79.4 Long term (current) use of insulin; Z79.890 Hormone replacement therapy
CPT/HCPCS: 36415; 70450; 80053; 81001; 83735; 84484; 85025; 85610; 85730; 87086; 93005; 93010; A9270

== ENCOUNTER 2022-03-22 23:37 | Inpatient (IN) | payer OTHER ==
[~2022-03-22] VITALS: Ht 167.6 cm; Wt 94.1 kg
[2022-03-23 00:08] LABS: BASOPHILS PERCENT AUTO 1 % (0-2); EOSINOPHILS ABSOLUTE AUTO 0.02 K/mm3 (0.00-0.68); EOSINOPHILS PERCENT AUTO 0 % (0-6); Hematocrit 48.7 % (33.0-51.0); Hemoglobin 15.6 g/dL (11.5-16.0); IMMATURE GRAN ABSOLUTE AUTO 0.19 K/mm3 (0.00-0.10); IMMATURE GRAN PERCENT AUTO 1 % (0-1); LYMPHOCYTES ABSOLUTE AUTO 2.58 K/mm3 (0.84-5.20); LYMPHOCYTES PERCENT AUTO 18 % (21-46); MONOCYTES ABSOLUTE AUTO 1.17 K/mm3 (0.16-1.47); MONOCYTES PERCENT AUTO 8 % (4-13); Mean Corpuscular HGB 30.1 pg (26.0-34.0); Mean Corpuscular Volume 94 fL (80-100); Mean Platelet Volume 11.5 fL (9.1-12.4); NEUTROPHILS ABSOLUTE AUTO 10.18 K/mm3 (1.96-9.15); NEUTROPHILS PERCENT AUTO 72 % (41-73); Platelet Count 254 K/mm3 (150-400); RDW Coefficient Variation 13.8 % (11.7-14.2); RDW Standard Deviation 47.6 fL (35.1-46.3); Red Blood Cell Count 5.18 M/mm3 (3.80-5.20); White Blood Cell Count 14.24 K/mm3 (4.00-11.30)
[2022-03-23 00:22] LABS: Magnesium, Blood 2.5 mg/dL (1.6-2.4)
[2022-03-23 00:24] LABS: Albumin, Blood 3.7 g/dL (3.4-5.0); Albumin/Globulin Ratio 0.8 (0.8-1.8); Bilirubin, Total 0.9 mg/dL (0.1-1.0); Calcium, Blood 10.5 mg/dL (8.5-10.1); Creatinine, Blood 0.86 mg/dL (0.40-1.00); Globulin, Blood 4.9 g/dL (2.2-4.0); Potassium, Blood 5.5 mmol/L (3.5-5.5); Total Protein, Blood 8.6 g/dL (6.4-8.2)
[2022-03-23 00:35] LABS: Beta-hydroxybutyrate 103.1 mg/dL (0.2-2.8)
[2022-03-23 00:41] LABS: Source, Urine Voided
[2022-03-23 00:48] LABS: Bilirubin, Urine Neg (Neg); Blood, Urine 5+ (Neg); Glucose Qualitative, Urine 4+ (Neg); Ketones, Urine 4+ (Neg); Leukocyte Esterase, Urine Neg (Neg); Nitrite, Urine Neg (Neg); Protein, Urine 3+ (Neg); Urobilinogen, Urine NORM (Normal)
[2022-03-23 00:54] LABS: Base Excess Venous -22.7 mmol/L; Bicarbonate Venous 9.1 mmol/L (24.0-30.0); PCO2 Venous 35.5 mmHg (38-42); PO2 Venous 44.9 mmHg (38-42)
[2022-03-23 00:54] LABS: Appearance, Urine Hazy (Clear); Color, Urine Yellow (P-Yellow)
[2022-03-23 00:55] LABS: Amorphous Mod (0-Heavy); Bacteria Few /hpf; Mucus Light (0-Heavy); Red Blood Cells, Urine 0-2 /hpf (0-2); Squamous Epithelial Cells Few /hpf (Few); White Blood Cells, Urine Not Seen /hpf (0-5)
--- NOTE | 2022-03-23 03:47 | NUR ---
PT ADMITTED FROM ED FOR DKA. PT CONFUSED UNABLE TO ASSESS ORIENTATION. CBG ON ARRIVAL WAS 315. PER MD, WILL SWITCH FLUIDS FROM LR TO D5 1/2 NS WHEN CBGS LOWER THAN 250.
[2022-03-23 04:07] LABS: Bun/Creatinine Ratio 29.2 (12.0-20.0); Calcium, Blood 9.7 mg/dL (8.5-10.1); Creatinine, Blood 0.69 mg/dL (0.40-1.00); Potassium, Blood 4.1 mmol/L (3.5-5.5)
[2022-03-23 04:36] LABS: Source, Urine Foley catheter
[2022-03-23 04:42] LABS: Bilirubin, Urine Neg (Neg); Blood, Urine 4+ (Neg); Glucose Qualitative, Urine 4+ (Neg); Ketones, Urine 4+ (Neg); Leukocyte Esterase, Urine Neg (Neg); Nitrite, Urine Neg (Neg); Protein, Urine 2+ (Neg); Specific Gravity, Urine 1.025 (1.003-1.022); Urobilinogen, Urine NORM (Normal)
[2022-03-23 05:31] LABS: Appearance, Urine Clear (Clear); Color, Urine Yellow (P-Yellow)
[2022-03-23 05:33] LABS: Amorphous Light (0-Heavy); Bacteria Few /hpf; Granular Casts 0-2 /lpf (0); Red Blood Cells, Urine 0-2 /hpf (0-2); Squamous Epithelial Cells Few /hpf (Few); White Blood Cells, Urine 0-2 /hpf (0-5)
[2022-03-23 11:31] LABS: Bun/Creatinine Ratio 24.8 (12.0-20.0); Calcium, Blood 9.3 mg/dL (8.5-10.1); Creatinine, Blood 0.53 mg/dL (0.40-1.00); Potassium, Blood 3.5 mmol/L (3.5-5.5)
[2022-03-23 17:08] LABS: Bun/Creatinine Ratio 17.4 (12.0-20.0); Calcium, Blood 9.6 mg/dL (8.5-10.1); Creatinine, Blood 0.52 mg/dL (0.40-1.00); Potassium, Blood 3.6 mmol/L (3.5-5.5)
--- NOTE | 2022-03-23 18:32 | NUR ---
SHIFT SUMMARY: NO ACUTE CHANGES SINCE PRIOR UPDATES. PT CONTINUES HAVING ALTERED MENTATION, ALTHOUGH DURING BED BATH THIS EVENING SHE DOES VERBALIZE FOR STAFF TO "STOP IT NOW" & MAKES EYE CONTACT W/ THIS RN WHEN CARE MEASURES ARE BEING EXPLAINED. OVERALL SLEEPING & RESTLESS AT TIMES. LS ARE CLEAR, PT ON RA W/ O2 SATS > 95%. MONITOR SHOWS SR W/ HR 90s, BP STABLE. NPO R/T AMS. MURILLO PATENT/ DRAINING DARK YELLOW URINE. SKIN CONDITION OVERALL INTACT, ECCHYMOTIC. Q2H REPOSITIONING TO MAINTAIN SKIN INTEGRITY. WILL CONTINUE TO MONITOR & REPORT OFF TO ONCOMING RN.
[2022-03-24 04:32] LABS: BASOPHILS ABSOLUTE AUTO 0.01 K/mm3 (0.00-0.23); BASOPHILS PERCENT AUTO 0 % (0-2); EOSINOPHILS ABSOLUTE AUTO 0.02 K/mm3 (0.00-0.68); EOSINOPHILS PERCENT AUTO 1 % (0-6); Hematocrit 33.8 % (33.0-51.0); Hemoglobin 11.6 g/dL (11.5-16.0); IMMATURE GRAN ABSOLUTE AUTO 0.01 K/mm3 (0.00-0.10); IMMATURE GRAN PERCENT AUTO 0 % (0-1); LYMPHOCYTES ABSOLUTE AUTO 1.14 K/mm3 (0.84-5.20); LYMPHOCYTES PERCENT AUTO 32 % (21-46); MONOCYTES ABSOLUTE AUTO 0.44 K/mm3 (0.16-1.47); MONOCYTES PERCENT AUTO 12 % (4-13); Mean Corpuscular HGB 30.4 pg (26.0-34.0); Mean Corpuscular HGB Conc 34.3 g/dL (31.5-36.5); Mean Platelet Volume 10.3 fL (9.1-12.4); NEUTROPHILS ABSOLUTE AUTO 1.95 K/mm3 (1.96-9.15); NEUTROPHILS PERCENT AUTO 55 % (41-73); Platelet Count 83 K/mm3 (150-400); RDW Coefficient Variation 14.2 % (11.7-14.2); RDW Standard Deviation 45.8 fL (35.1-46.3); Red Blood Cell Count 3.82 M/mm3 (3.80-5.20); White Blood Cell Count 3.57 K/mm3 (4.00-11.30)
--- NOTE | 2022-03-24 04:50 | NUR ---
SHIFT SUMMARY: PT CONTINUES TO HAVE ALTERED MENTATION. UNABLE TO FOLLOW COMMANDS, HOWEVER DOES SAY "STOP IT" WHEN PROVIDING CARE, CONTINUES TO BE RESTLESS AND ATTEMPT TO PULL ON LINES. BP STABLE. HR SINUS TACH 100'S. AFEBRILE. SATING >96% ON RA. RESPIRATIONS EVEN AND UNLABORED. PULSES STRONG AND EQUAL. CBG RANGED FROM 180-212 THIS SHIFT, REMAINS ON INSULIN DRIP AT 5UNITS/HR. MURILLO CATH IN PLACE DRAINING YELLOW URINE TO GRAVITY, APPROX 1600ML OF OUTPUT. NO BM. REPOS Q2. BED IN LOW, WILL REPORT TO ONCOMING RN.
[2022-03-24 05:10] LABS: Mean Corpuscular Volume 89 fL (80-100)
[2022-03-24 05:13] LABS: Albumin, Blood 2.7 g/dL (3.4-5.0); Albumin/Globulin Ratio 0.8 (0.8-1.8); Bilirubin, Total 0.7 mg/dL (0.1-1.0); Calcium, Blood 9.4 mg/dL (8.5-10.1); Creatinine, Blood 0.46 mg/dL (0.40-1.00); Globulin, Blood 3.4 g/dL (2.2-4.0); Total Protein, Blood 6.1 g/dL (6.4-8.2)
--- NOTE | 2022-03-24 07:56 | NUR ---
0700 assumed care of patient Patient is sluggish in the bed. She is not responding to verbal stimuli however when eyelids were lifted to see pupils she did keep them open and purposely look at the nurse and frown. Pupils size 2 bilat. brisk to light. She is moving her extremeties independenlty but nothing to command. Glucose 147 this am and insulin drip going into her piv in her hand was at 6 unit down to 4.5unit. D51/2NS with 20meq of kcl is going into powerglide left upper arm with kcl gtt going as well. She has gonzalez 18fr and having lg amount of urine out an hr.. just dumped 800ml from last time mini shifter dumped the urine. Will continue care as directed and hep her become more alert as the day progresses. Took patient out of restraints that were soft bilat. wrist rest. patient not showing any intent at this time of pulling lines. Will follow.
--- NOTE | 2022-03-24 10:52 | NUR ---
1050 ... DR MARI AT BEDSIDE.. PATIENT WOKE REORIENTED PT TO WHICH HOSP. SHE WAS IN. SHE DID SPEAK WITH DR LAM WITH LOTS OF COAXING. PATIENT NEEDING TO WAKE UP MORE AND IS BEING ENCOURAGED TO EAT TO GET HER OFF THE INSULIN DRIP AND IV FLUIDS. PATIENT PULLED HER POWERGLIDE OUT THIS AM ON LEFT UPPER FOREARM. NURSE NAVA PLACED A NEW POWERGLIDED TO RIGHT UPPER ARM AND KCL RESTARTED. PATIENT BACK IN RESTRAINTS TILL MORE ALERT AND ORIENTED.
[2022-03-24 13:35] LABS: Bun/Creatinine Ratio 8.4 (12.0-20.0); Calcium, Blood 9.2 mg/dL (8.5-10.1); Creatinine, Blood 0.47 mg/dL (0.40-1.00); Potassium, Blood 3.3 mmol/L (3.5-5.5)
--- NOTE | 2022-03-24 13:35 | NUR ---
1300--- UPDATES PATIENT IS MORE ALERT THIS AFTERNOON WITH LOTS OF INTERACTION FROM NURSE AND FAMILY. DAUGHTER AT BEDSIDE NOW TRYING TO GET HER TO EAT. SHE HAS BEEN VERY RELUCTANT TO EAT ANYTHING. BITS OF JELLO AND PUDDING AND MILK. HER GLUCOSE REMAINS IN THE 200'S. STOPPED THE INSULIN DRIP AND STARTED LONG ACTING INSULIN SQ. PATIENTS BEHAVIOR IS MUCH LIKE A CHILD. SHE BLOWS AIR BETWEEN HER LIPS LIKE BLOWING OUT CANDLES IN A SPIT MOTION AND SAYS NO TO WANTING HER BLOOD SUGER CHECKED OR FOR EATTING ANYTHING. SHE WILL TAKE IN ICE CHIPS HOWEVER. SHE SAID "EVERYTHING TASTE LIKE SHIT" . DAUGHTER AND NURSE HELPED HER BRUSH HER TEETH AND USE MOUTHWASH TO SEE IF THE FOOD MAY TASTE BETTER AFTER ORAL CARE DONE. SHE WAS RELUCTANT TO DO THAT EITHER. DAUGHTER STATED SHE HAS BEEN HAVING A DECREASE IN DIET INTEREST FOR THE LAST MONTH AND WHEN WALKING SHE IS HAVING AN INCREASE IN STUMBLING WITH HER LEFT LEG NOT LIFTING IT WELL. WILL GIVE CONCERNS TO DOCTOR ON TODAY. VS REMAINS STABLE DESPITE HER NOT TAKING HER MANY BP MEDICATIONS. SHE REMAINS RESTRAINED WHEN FAMILY NOT IN ROOM SINCE SHE IS STILL UNTRUSTWORTHY TO LEAVE ALONE AND NOT HAVE HER PULL OUT HER IV'S SINCE SHE IS NOT VERY COOPERATIVE.
--- NOTE | 2022-03-24 13:57 | NUR ---
Pt. is drowsy in bed but welcomes my visit. Pts. daughter is present. Pt. displays evidence of being slow to respond. Pts. daughter displays evidence of being supportive. Through theraputic listening Pt. displays evidence of trust. Establish rapport with both Pt. and daughter. Consider issues of nanci and belief. [place] for Pt. both daughter and Pt. verbalize gratitude for the spiritual care visit. Pt. smiled.
--- NOTE | 2022-03-24 16:45 | NUR ---
1931-- UPDATE PATIENT ALERT AND ORIENTED TO SELF, PLACE, SITUATION. STILL NOT HAPPY TO EAT BECAUSE SHE DOESN'T LIKE THE FLAVOR OF FOOD. TRYING VERY BLAND FOODS. HER GLUCOSE REMAINS IN THE 200'S WITH LOW S/S CALLED DR MARI AND SHE ORDERED HIGH SLIDING SCALE. PATIENT WANTING TO GO HOME, TOLD DR MARI THIS WHO WISHES PATIENT TO STAY OVER NIGHT AND SO WE CAN MONITOR SUGARS. DR ROMO PATIENT WANTS TO SEE HER WELL. PATIENT CHANGING STATUS TO MEDICAL. DAUGHTER STILL AT BEDSIDE.
--- NOTE | 2022-03-24 17:58 | NUR ---
END OF SHIFT NOTE PATIENT HAS BEEN ALERT AND INTERACTING WITH DAUGHTER AND STAFF. SHE IS STILL RELUCTANT TO EAT "EVERYTHING TASTE LIKE SHIT" THEN SHE WOULD ARGUE WITH HER DAUGHTER WHO SAYS NO IT DOESN'T AND SHE SAYS YES IT DOES. SHE OTHERWISE WOULD SAY SHE ATE SOMETHING AND HER DAUGHTER WOULD SAY NO YOU DIDN'T I ATE IT. PATIENTS MURILLO IS OUT AND STILL WAITING FOR PATIENT TO VOID. VS HAVE BEEN STABLE. BOTH POWERGLIDE IN RIGHT UPPER ARM AND HAND IV ON LEFT ARE IN PLACE. SHE REMAINS OUT OF RESTRAINTS AT THIS TIME. INFORMED PATIENT SHE IS SPENDING THE NIGHT ONE MORE NIGHT. SHE HAS BEEN SWITCHED TO HIGH SLIDING SCALE INSULIN ON AC/HS CHECKS. WILL GIVE REPORT TO NEXT SHIFT TO RESUME CARE.
[2022-03-24] MEDS ORDERED: MIDO5 PO (19:43)
[2022-03-24] MEDS ORDERED: FURO20 PO (19:43)
[2022-03-24] MEDS ORDERED: CYCL10 PO (19:44)
[2022-03-24] MEDS ORDERED: MITIGARE0.6 M1 PO (19:46)
[2022-03-24] MEDS ORDERED: Vitamin D1000 UNI1 PO (19:48)
--- NOTE | 2022-03-24 19:53 | NUR ---
ASSUMPTION OF CARE PT IS ALERT, ORIENTED TO PERSON AND PLACE BUT NOT TIME. SHE FOLLOWS COMMANDS, STRENGTH EQUAL BILATERALLY BUT WEAK. SHE STATES SHE USES A WHEELCHAIR AND A WALKER AT HOME AND HAS HELP FROM HER SO AND HER DAUGHTER. HER AFFECT IS VERY FLAT AND SHE IS TEARFUL AT TIMES. SHE STATES SHE IS EMOTIONAL BECAUSE SHE JUST WANTS TO GO HOME. HER CONVERSATION IS APPROPRIATE BUT SHE IS SLIGHTLY SLOW TO RESPOND. CT DONE TODAY WAS NEGATIVE. PT HAS A REPORTED PRIOR HISTORY OF CVA. SHE IS ST ON THE MONITOR, BP WNL. SPOKE W/DR DOUGHERTY BECAUSE PT REPORTS HEADACHE AND HAD NO TYLENOL ORDERED. INFORMED HIM I HAD UPDATED PT HOME MED LIST WELL. PT IS ON ROOM AIR, OXYGEN SAT >95%. PT MOOD SEEMS LABILE AND SHE HAS A REPORTED POOR APPETITE. SHE HAS TAKEN A SNACK FROM ME SINCE I CAME ON SHIFT. NO S/S OF ACUTE DISTRESS NOTED AT TIME OF ASSUMPTION OF CARE.
--- NOTE | 2022-03-24 21:24 | NUR ---
ASSISTED PT TO BEDSIDE COMMODE. SHE WAS VERY WEAK AND UNSTEADY AND UNABLE TO DO MORE THAN BASICALLY STAND AND PIVOT.
[2022-03-25 04:06] LABS: Albumin, Blood 2.7 g/dL (3.4-5.0); Anion Gap 6 mmol/L (6-16); Blood Urea Nitrogen 6 mg/dL (8-24); Bun/Creatinine Ratio 11.8 (12.0-20.0); CO2, Blood 26 mmol/L (21-32); Calcium, Blood 9.5 mg/dL (8.5-10.1); Chloride, Blood 108 mmol/L (98-108); Creatinine, Blood 0.51 mg/dL (0.40-1.00); Glomerular Filtration Rate 112 (60-); Glucose, Blood 390 mg/dL (70-99); Phosphorus, Blood 1.4 mg/dL (2.5-4.9); Potassium, Blood 3.5 mmol/L (3.5-5.5); Sodium, Blood 140 mmol/L (136-145)
--- NOTE | 2022-03-25 05:36 | NUR ---
SHIFT SUMMERY NO ACUTE EVENTS OVERNIGHT. PT VS HAVE BEEN STABLE. SHE DID PULL OUT HER POWER GLIDE. DR MONTELONGO WAS NOTIFIED AND ORDER GIVEN FOR OK TO LEAVE OUT. SHE STATED SHE MUST HAVE PULLED IT OUT IN HER SLEEP. BEHAVIOR CONTINUES TO BE SOMEWHAT CHILD LIKE. SHE HAS RESTED WELL THROUGHOUT THE NIGHT.
--- NOTE | 2022-03-25 09:59 | NUR ---
ASSUMED CARE PT IS ALERT AND ORIENTED TO SELF/SURROUNDINGS. HAS CHILDLIKE DEMEANOR. IS UP IN CHAIR, ATE BREAKFAST, AND IS INTERMITTENTLY SLEEPING/AWAKE. MAP >65; SPO2 >92%. HR IN THE 80'S. APPEARS LESS SOMNULENT TODAY ACCORDING TO OFFGOING NURSE WHO STATED PT WAS BARELY ABLE TO ANSWER QUESTIONS D/T LETHARGY.
--- NOTE | 2022-03-25 11:30 | NUR ---
UPDATE PT DAUGHTER NOTIFIED THIS RN THAT CHILD/TEENAGER LIKE DISPOSITION IS ACTUALLY NEW STARTING YESTERDAY, BUT THAT THE PT HAS BEEN HAVING TROUBLES FOR A FEW MONTHS W/ EATING AND THAT THE PT HAS ALSO BEEN DEALING W/ SLOWLY PROGRESSING MEMORY ISSUES. THE DAUGHTER ALSO STATED THAT THE PT HAD A CVA 2 YEARS AGO.
--- NOTE | 2022-03-25 11:45 | NUR ---
Pt. is sitting up in a chair and welcomes my visit. Pt. is unsettled because she wants to go home. Listen empathetically with a calming presence. During visit Nurses came to do a blood sugar test. Pt. displayed evidence of confusion at times. Prayed with Pt. Pt. vebalized interest in this ophthalmic medical assistant to visit her again.
--- NOTE | 2022-03-25 17:41 | NUR ---
SHIFT SUMMARY PT IS ALERT AND ORIENTED X2. PT STILL HAS A CHILD/TEEN LIKE DISPOSITION AND IS ANXIOUS TO GO HOME. PLAN IS TO WAIT FOR BLOOD SUGARS TO STABILIZE BEFORE D/CING TOMORROW (03/25), SHE HAS BEEN IN THE HIGH 300'S TODAY. SUGAR WAS 257 BEFORE DINNER. PT'S DAUGHTER STATED THAT PT HAD A STROKE AROUND TWO YEARS AGO AND HAS BEEN DEALING W/ PROGRESSIVELY WORSE MEMORY LOSS AND DIFFICULTY EATING FOR THE PAST FEW MONTHS. THE CHILD/TEEN LIKE DISPOSITION IS NEW ACCORDING TO DAUGHTER. PT EATING WELL.
--- NOTE | 2022-03-26 06:35 | NUR ---
SHIFT SUMMARY: PT DEMONSTRATED CHILDLIKE BEHAVIOR MINIMALLY AT BEGINNING OF SHIFT. PATIENT NOW SEEMS TO BE AGE-APPROPRIATE AND STATES THAT SHE DOES NOT REMEMBER RIPPING OUT IVS AND BEING IN RESTRAINTS. NO ACUTE EVENTS OVERNIGHT. SUGAR LAST NIGHT WAS 324. CEPACOL GIVEN ONE TIME. VOIDED TO BEDSIDE COMMODE 500ML.
--- NOTE | 2022-03-26 07:00 | NUR ---
ASSUME CARE: I have assumed care of this patient.
[2022-03-26] MEDS ORDERED: Acetaminophen325 M1 PO (09:54)
[2022-03-26] MEDS ORDERED: HURRICAINE ONE1 EACH MM (09:56)
[2022-03-26] MEDS ORDERED: Cepacol Sore Throat PO (10:04)
--- NOTE | 2022-03-26 10:56 | NUR ---
DISCHARGE: pt discharged home with daughter via private vehicle. she was wheeled out via the wheelchair. discharge teaching and return precautions were discussed with pt and her daughter. both verbalize understanding and agreement.
== END 2022-03-26 11:15 | disposition home or self-care (01) | DRG 637 ==
LOC: ER 23:37 → ICUW 03-23 01:36 → ERHOLD 03-23 01:36 → ICUW 03-23 03:00
PROVIDERS: Internal Medicine; Student in an Organized Health Care Education/Training Program; ADMIT Internal Medicine
DX: E10.10 Type 1 diabetes mellitus with ketoacidosis without coma (principal); G92.8 Other toxic encephalopathy; I48.20 Chronic atrial fibrillation, unspecified; I25.10 Atherosclerotic heart disease of native coronary artery without angina pectoris; I10 Essential (primary) hypertension; E87.6 Hypokalemia; D72.829 Elevated white blood cell count, unspecified; E10.42 Type 1 diabetes mellitus with diabetic polyneuropathy; J02.9 Acute pharyngitis, unspecified; F32.9 Major depressive disorder, single episode, unspecified; E10.65 Type 1 diabetes mellitus with hyperglycemia; F43.10 Post-traumatic stress disorder, unspecified; E78.5 Hyperlipidemia, unspecified; G43.909 Migraine, unspecified, not intractable, without status migrainosus; K57.90 Diverticulosis of intestine, part unspecified, without perforation or abscess without bleeding; Z90.49 Acquired absence of other specified parts of digestive tract; Z90.710 Acquired absence of both cervix and uterus; Z90.721 Acquired absence of ovaries, unilateral; Z88.8 Allergy status to other drugs, medicaments and biological substances; I25.2 Old myocardial infarction; Z88.0 Allergy status to penicillin; Z88.5 Allergy status to narcotic agent; Z79.01 Long term (current) use of anticoagulants; Z91.048 Other nonmedicinal substance allergy status; Z98.890 Other specified postprocedural states; Z91.041 Radiographic dye allergy status; Z79.02 Long term (current) use of antithrombotics/antiplatelets; Z79.4 Long term (current) use of insulin; Z79.899 Other long term (current) drug therapy; Z79.51 Long term (current) use of inhaled steroids; Z79.891 Long term (current) use of opiate analgesic; Z85.41 Personal history of malignant neoplasm of cervix uteri; Z87.891 Personal history of nicotine dependence
CPT/HCPCS: 36415; 51702; 70450; 71045; 80048; 80053; 80069; 81001; 82010; 82803; 82947; 83735; 85025; 93005; 93010; 96361; 96374; 97110; 97116; 97162; 99285-25; A9270; C1751; J1650; J1815; J3480; J7030; J7040; J7042; J7050; J7120

== ENCOUNTER 2022-09-29 18:19 | Emergency (ER) | payer OTHER ==
[~2022-09-29] VITALS: Ht 165.1 cm; Wt 81.7 kg
[~2022-09-29 18:19] MED LIST changes: +Acetaminophen325 M1 PO; +Cepacol Sore Throat PO; +FURO20 PO; +HURRICAINE ONE1 EACH MM; +MIDO5 PO; +MITIGARE0.6 M1 PO; +Vitamin D1000 UNI1 PO
[2022-09-29 18:57] VITALS: BP 121/68
== END 2022-09-29 20:15 | disposition home or self-care (01) ==
LOC: ER 18:19
DX: Z48.00 Encounter for change or removal of nonsurgical wound dressing (principal); L98.499 Non-pressure chronic ulcer of skin of other sites with unspecified severity; E10.9 Type 1 diabetes mellitus without complications; I48.20 Chronic atrial fibrillation, unspecified; I10 Essential (primary) hypertension; I25.10 Atherosclerotic heart disease of native coronary artery without angina pectoris; I25.2 Old myocardial infarction; E78.5 Hyperlipidemia, unspecified; Z85.41 Personal history of malignant neoplasm of cervix uteri; Z85.42 Personal history of malignant neoplasm of other parts of uterus; Z88.6 Allergy status to analgesic agent; Z91.041 Radiographic dye allergy status; Z91.048 Other nonmedicinal substance allergy status; Z88.0 Allergy status to penicillin; Z88.5 Allergy status to narcotic agent; Z79.4 Long term (current) use of insulin; Z79.02 Long term (current) use of antithrombotics/antiplatelets; Z79.01 Long term (current) use of anticoagulants; Z79.899 Other long term (current) drug therapy; X16.XXXA Contact with hot heating appliances, radiators and pipes, initial encounter
CPT/HCPCS: 99282

== ENCOUNTER 2022-10-07 03:26 | Day surgery (SDC) | payer OTHER | END 2022-10-07 23:08 | disposition home or self-care (01) | LOC: WOUND 03:26 | DX: T21.22XD Burn of second degree of abdominal wall, subsequent encounter (principal); X16.XXXD Contact with hot heating appliances, radiators and pipes, subsequent encounter; E10.9 Type 1 diabetes mellitus without complications; I10 Essential (primary) hypertension; J45.909 Unspecified asthma, uncomplicated; G47.30 Sleep apnea, unspecified; I48.91 Unspecified atrial fibrillation; I25.2 Old myocardial infarction; Z87.891 Personal history of nicotine dependence; Z88.0 Allergy status to penicillin; Z88.5 Allergy status to narcotic agent; Z88.8 Allergy status to other drugs, medicaments and biological substances | CPT/HCPCS: A9270; G0463 ==

== ENCOUNTER 2022-10-15 03:32 | Day surgery (SDC) | payer OTHER | END 2022-10-15 22:44 | disposition home or self-care (01) | LOC: WOUND 03:32 | DX: T21.22XD Burn of second degree of abdominal wall, subsequent encounter (principal); X08.8XXD Exposure to other specified smoke, fire and flames, subsequent encounter; S31.109D Unspecified open wound of abdominal wall, unspecified quadrant without penetration into peritoneal cavity, subsequent encounter; X58.XXXD Exposure to other specified factors, subsequent encounter; E10.9 Type 1 diabetes mellitus without complications; I10 Essential (primary) hypertension | CPT/HCPCS: A9270 ==

== ENCOUNTER 2023-01-29 20:54 | Emergency (ER) | payer OTHER ==
[~2023-01-29] VITALS: Ht 165.1 cm; Wt 76.7 kg
[2023-01-29] MEDS ORDERED: ALLEGRA ALLERG180 MG PO (21:25)
[2023-01-29] MEDS ORDERED: TRAM50 PO (21:26)
[2023-01-29 21:35] LABS: BASOPHILS ABSOLUTE AUTO 0.02 K/mm3 (0.00-0.23); BASOPHILS PERCENT AUTO 1 % (0-2); EOSINOPHILS ABSOLUTE AUTO 0.05 K/mm3 (0.00-0.68); EOSINOPHILS PERCENT AUTO 2 % (0-6); Hematocrit 34.7 % (33.0-51.0); Hemoglobin 11.6 g/dL (11.5-16.0); IMMATURE GRAN ABSOLUTE AUTO 0.02 K/mm3 (0.00-0.10); IMMATURE GRAN PERCENT AUTO 1 % (0-1); LYMPHOCYTES ABSOLUTE AUTO 0.99 K/mm3 (0.84-5.20); LYMPHOCYTES PERCENT AUTO 31 % (21-46); MONOCYTES ABSOLUTE AUTO 0.38 K/mm3 (0.16-1.47); MONOCYTES PERCENT AUTO 12 % (4-13); Mean Corpuscular HGB 30.4 pg (26.0-34.0); Mean Corpuscular HGB Conc 33.4 g/dL (31.5-36.5); Mean Corpuscular Volume 91 fL (80-100); Mean Platelet Volume 11.6 fL (9.1-12.4); NEUTROPHILS ABSOLUTE AUTO 1.78 K/mm3 (1.96-9.15); NEUTROPHILS PERCENT AUTO 55 % (41-73); Platelet Count 66 K/mm3 (150-400); RDW Coefficient Variation 14.5 % (11.7-14.2); RDW Standard Deviation 48.3 fL (35.1-46.3); Red Blood Cell Count 3.81 M/mm3 (3.80-5.20); White Blood Cell Count 3.24 K/mm3 (4.00-11.30)
[2023-01-29 21:46] LABS: Albumin, Blood 2.6 g/dL (3.4-5.0); Albumin/Globulin Ratio 0.7 (0.8-1.8); Bilirubin, Total 0.4 mg/dL (0.1-1.0); Bun/Creatinine Ratio 16.3 (12.0-20.0); Creatinine, Blood 0.49 mg/dL (0.40-1.00); Globulin, Blood 3.7 g/dL (2.2-4.0); Potassium, Blood 3.7 mmol/L (3.5-5.5); Total Protein, Blood 6.3 g/dL (6.4-8.2)
[2023-01-29 22:33] LABS: Base Excess Venous 5.2 mmol/L; Bicarbonate Venous 27.6 mmol/L (24.0-30.0); PCO2 Venous 53 mmHg (38-42); pH Blood Venous 7.37 (7.34-7.37)
[2023-01-29 23:04] LABS: Source, Urine Clean Catch
[2023-01-29 23:18] LABS: Appearance, Urine Clear (Clear); Bilirubin, Urine Neg (Neg); Blood, Urine Neg (Neg); Color, Urine Yellow (P-Yellow); Glucose Qualitative, Urine 4+ (Neg); Ketones, Urine Neg (Neg); Leukocyte Esterase, Urine Neg (Neg); Nitrite, Urine Neg (Neg); Protein, Urine Neg (Neg); Urobilinogen, Urine NORM (Normal)
[2023-01-29 23:19] LABS: Free Thyroxine 1.16 ng/dL (0.70-1.60)
[2023-01-29 23:26] LABS: Thyroid Stimulating Hormone 1.22 uIU/mL (0.360-4.800)
[2023-01-30 01:59] VITALS: BP 123/59
== END 2023-01-30 01:59 | disposition home or self-care (01) ==
LOC: ER 20:54
PROVIDERS: Emergency Medicine
DX: S09.90XA Unspecified injury of head, initial encounter (principal); E10.65 Type 1 diabetes mellitus with hyperglycemia; E87.1 Hypo-osmolality and hyponatremia; D69.6 Thrombocytopenia, unspecified; E86.0 Dehydration; W19.XXXA Unspecified fall, initial encounter; Z88.8 Allergy status to other drugs, medicaments and biological substances; Z91.048 Other nonmedicinal substance allergy status; Z88.0 Allergy status to penicillin; Z88.5 Allergy status to narcotic agent; Z79.899 Other long term (current) drug therapy; Z79.4 Long term (current) use of insulin; I48.20 Chronic atrial fibrillation, unspecified; F43.10 Post-traumatic stress disorder, unspecified; I10 Essential (primary) hypertension; I25.10 Atherosclerotic heart disease of native coronary artery without angina pectoris; G43.909 Migraine, unspecified, not intractable, without status migrainosus; I25.2 Old myocardial infarction; E78.5 Hyperlipidemia, unspecified
CPT/HCPCS: 70450; 80053; 81003; 82803; 82947; 83930; 84439; 84443; 85025; 96361; 96374; 96375; 99285-25; J1200; J1815; J2765; J7030

== ENCOUNTER 2023-05-16 19:57 | Inpatient (IN) | payer OTHER ==
[~2023-05-16] VITALS: Ht 165.1 cm; Wt 79.0 kg
[~2023-05-16 19:57] MED LIST changes: -METO50ER PO; +TOPROL XL50 M1 PO
[2023-05-16 20:38] LABS: BASOPHILS ABSOLUTE AUTO 0.07 K/mm3 (0.00-0.23); BASOPHILS PERCENT AUTO 1 % (0-2); EOSINOPHILS ABSOLUTE AUTO 0.17 K/mm3 (0.00-0.68); EOSINOPHILS PERCENT AUTO 2 % (0-6); Hematocrit 44.9 % (33.0-51.0); Hemoglobin 15.4 g/dL (11.5-16.0); IMMATURE GRAN ABSOLUTE AUTO 0.07 K/mm3 (0.00-0.10); IMMATURE GRAN PERCENT AUTO 1 % (0-1); LYMPHOCYTES ABSOLUTE AUTO 2.33 K/mm3 (0.84-5.20); LYMPHOCYTES PERCENT AUTO 24 % (21-46); MONOCYTES ABSOLUTE AUTO 1.06 K/mm3 (0.16-1.47); MONOCYTES PERCENT AUTO 11 % (4-13); Mean Corpuscular HGB Conc 34.3 g/dL (31.5-36.5); Mean Corpuscular Volume 87 fL (80-100); Mean Platelet Volume 10.5 fL (9.1-12.4); NEUTROPHILS ABSOLUTE AUTO 6.12 K/mm3 (1.96-9.15); NEUTROPHILS PERCENT AUTO 62 % (41-73); Platelet Count 221 K/mm3 (150-400); RDW Coefficient Variation 13.1 % (11.7-14.2); RDW Standard Deviation 41.6 fL (35.1-46.3); Red Blood Cell Count 5.14 M/mm3 (3.80-5.20); White Blood Cell Count 9.82 K/mm3 (4.00-11.30)
[2023-05-16 20:59] LABS: Albumin, Blood 3.3 g/dL (3.4-5.0); Albumin/Globulin Ratio 0.7 (0.8-1.8); Bilirubin, Total 0.6 mg/dL (0.1-1.0); Bun/Creatinine Ratio 28.9 (12.0-20.0); Calcium, Blood 9.7 mg/dL (8.5-10.1); Creatinine, Blood 0.55 mg/dL (0.40-1.00); Globulin, Blood 4.7 g/dL (2.2-4.0); Potassium, Blood 3.5 mmol/L (3.5-5.5)
[2023-05-17] VITALS (19 sets, daily range): BP systolic 95–117; BP diastolic 58–95
--- NOTE | 2023-05-17 04:30 | NUR ---
PT ARRIVED FROM ER VIA STRETCHER TO PCU 06. PT IS ALERT AND ORIENTED, SPEECH IS SLOW AND SHE IS SLOW TO RESPOND BUT ANSWERS QUESTIONS APPROPRIATELY. SHE HAS CARDIZEM INFUSING AT 20, ON TELE W/HR VARIABLE TO 130S. BP WNL. PT IS AFEBRILE. SHE IS ON ROOM AIR, OXYGEN SAT >90% W/NO S/S OF SHORTNESS OF BREATH AT THIS TIME. PT DENIES ANY PAIN OR DISCOMFORT, NO S/S OF ACUTE DISTRESS NOTED AT TIME OF ADMISSION.
[2023-05-17] MEDS ORDERED: INSULIN GL100 UNIT/2 SC (07:27)
[2023-05-17] MEDS ORDERED: FUROSEMIDE20 MG PO (07:27)
[2023-05-17] MEDS ORDERED: NOVOLOG FL100 UNIT/3 SC (07:29)
--- NOTE | 2023-05-17 08:00 | NUR ---
INITIAL ASSESSMENT: Patient has been resting comfortably with her eyes closed, she awakens after me saying her name a couple of times. She startles with touch. She seems to fall back to sleep quickly with out constant stimulus, per the noc RN patient has been lethargic since arrival. She is oriented x4. She denies pain at this time. She reports she has chronic numbness and tingling in her hands and feet. HR SR with PACs, she was a-fib with RVR but converted after being on Cardizem gtt, cardizem is still infusing at 5 mg/hr until oral meds ordered. BT+, PPP no edema present at this time. Dr. Patel called to let her know the patients home medications have been reconciled and she converted to SR. VSS. Bed alarm on for safety. Call light in reach.
[2023-05-17 10:22] LABS: Source, Urine Voided
[2023-05-17 10:31] LABS: Bilirubin, Urine Neg (Neg); Blood, Urine Neg (Neg); Glucose Qualitative, Urine 1+ (Neg); Ketones, Urine 2+ (Neg); Leukocyte Esterase, Urine 2+ (Neg); Nitrite, Urine Neg (Neg); Protein, Urine 1+ (Neg); Specific Gravity, Urine 1.015 (1.003-1.022); Urobilinogen, Urine 1+ (Normal)
[2023-05-17 10:49] LABS: U Amphetamine Screen Not Detected; U Barbituate Screen Not Detected; U Benzodiazapine Screen Not Detected; U Buprenorphine Screen Not Detected; U Cannabinoids Screen Not Detected; U Cocaine Screen Not Detected; U Methadone Screen Not Detected; U Methamphetamine Screen Not Detected; U Opiates Screen Not Detected; U Oxycodone Screen Not Detected; U Phencyclidine Screen Not Detected
[2023-05-17 12:01] LABS: Appearance, Urine Hazy (Clear); Bacteria Many /hpf; Color, Urine Yellow (P-Yellow); Red Blood Cells, Urine 0-2 /hpf (0-2); Squamous Epithelial Cells Few /hpf (Few); Yeast/Fungi Urine Many /hpf
[2023-05-17 15:56] LABS: PCO2 Arterial 40.4 mmHg (35-45); pH Blood Arterial 7.42 (7.35-7.45)
[2023-05-17 15:57] LABS: PO2 Arterial 72.2 mmHg (80-100)
--- NOTE | 2023-05-17 16:34 | NUR ---
Update: Patient has still been resting comfortably, she wakes after you call her name a few times. She attempted to get to the edge of the bed and go to the bathroom earlier. She was not responding to staff, once laid back down she started to respond to sternal rub, eposide lasted approx 1 min. Blood pressures are stable when she is lying flat, patient will be bed rest. Her blood sugars have been trending up currently 392, patient was just covered with 15 units of Novolog. Her breath smells fruity, she has ketones in her urine and protein. Call placed to Dr. Brown with concern for DKA, see new orders. Dr. brown soon came to the bedside to evaluate the patient. ABG results were given to MD, see new orders. Patient is more awake and is having a snack. She denies other needs at this time. Call light in reach.
[2023-05-17 16:58] LABS: Albumin, Blood 2.9 g/dL (3.4-5.0); Albumin/Globulin Ratio 0.7 (0.8-1.8); Beta-hydroxybutyrate 2.7 mg/dL (0.2-2.8); Bilirubin, Total 0.3 mg/dL (0.1-1.0); Bun/Creatinine Ratio 37.7 (12.0-20.0); Calcium, Blood 9.8 mg/dL (8.5-10.1); Creatinine, Blood 0.48 mg/dL (0.40-1.00); Globulin, Blood 3.9 g/dL (2.2-4.0); Potassium, Blood 3.8 mmol/L (3.5-5.5); Total Protein, Blood 6.8 g/dL (6.4-8.2)
--- NOTE | 2023-05-17 18:07 | NUR ---
Summary: Patient has been oriented x4 T/O the shift, for the majority of the shift she has been lethargic, but still arouses to verbal stimuli. She has not C/O pain. HR has been fluctuating alot this shift, she has been bouncing back and fourth from SR to atrial fibrillation/flutter. She was given po Metoprolol this AM and I attempted to turn off the Cardizem gtt and the patient converted back, she is currently on Cardizem gtt at 10 mg/hr and is in SR in the 70s. No C/O chest pain or pressure. LS DIM in the bases, she has a coarse PC with bourgeois sputum, she has been high 90s on RA. BT+. PPP. Her blood sugars were high this afternoon trending up to 392 and they are back down to 284 with high S/S insulin and titrating her Lantus up to her home dose. She is resting comfortably in bed at this time, watching TV. She denies any fruther needs, will report to oncoming RN.
[2023-05-18] VITALS (16 sets, daily range): BP systolic 102–162; BP diastolic 50–105
--- NOTE | 2023-05-18 06:22 | NUR ---
SHIFT SUMMARY A/Ox4 AND COOPERATIVE WITH CARE. ANSWERS QUESTIONS APPROPRIATELY AND ABLE TO MAKE HER NEEDS KNOWN. NO ACUTE EVENTS OVER NIGHT FOR PT WAS ABLE TO GET INTERMITTENT SLEEP T/O THE NIGHT. CONTINUES TO BE LETHARGIC WITH SLOW RESPONSES TO QUESTIONS. CARDIAC, REMAINS IN SR 70-80'S THROUGHOUT THE NIGHT WITH NO COMPLAINTS OF CP OR PRESSURE DURING THE NIGHT. DID REPORT MINOR DIZZINESS WHEN STANDING UP, BUT HAS SINCE IMPROVED THIS AM. CARDIZEM gtt HAS BEEN INFUSING T/O THE NIGHT PER EMAR. RESPIRATORY, MAINTAINS SPO2 >94% ON RA WITH NO REPORTS OF SOB OR DYSPNEA AT REST. CONTINUES TO HAVE MOIST, CONGESTED, NON-PRODUCTIVE COUGH THIS AM. GI/, ABLE TO STAND PIVOT TO VOID INTO BSC PRODUCING YELLOW URINE. NO BM THIS SHIFT. NS INFUSING ORDERED VIA EMAR. ASSESSED PT FOR RISKS OF ANY IGNITION SOURCES WELL BEHAVIORS FOR INCREASED RISKS OF FIRE DANGER. PT EDUCATED ON COMMON SOURCES OF IGNITION WELL NEED TO KEEP A SAFE ENVIRONMENT. PT VOICED UNDERSTANDING. NO NEW ORDERS AT THIS TIME, WILL REPORT TO ONCOMING RN. DARÍO GARCIA OF THIS NOTE
[2023-05-18 08:43] LABS: BASOPHILS ABSOLUTE AUTO 0.02 K/mm3 (0.00-0.23); BASOPHILS PERCENT AUTO 1 % (0-2); EOSINOPHILS ABSOLUTE AUTO 0.07 K/mm3 (0.00-0.68); EOSINOPHILS PERCENT AUTO 2 % (0-6); Hematocrit 37.7 % (33.0-51.0); Hemoglobin 12.8 g/dL (11.5-16.0); IMMATURE GRAN ABSOLUTE AUTO 0.01 K/mm3 (0.00-0.10); IMMATURE GRAN PERCENT AUTO 0 % (0-1); LYMPHOCYTES ABSOLUTE AUTO 1.21 K/mm3 (0.84-5.20); LYMPHOCYTES PERCENT AUTO 36 % (21-46); MONOCYTES ABSOLUTE AUTO 0.32 K/mm3 (0.16-1.47); MONOCYTES PERCENT AUTO 9 % (4-13); Mean Corpuscular HGB 29.8 pg (26.0-34.0); Mean Corpuscular Volume 88 fL (80-100); Mean Platelet Volume 10.1 fL (9.1-12.4); NEUTROPHILS ABSOLUTE AUTO 1.78 K/mm3 (1.96-9.15); NEUTROPHILS PERCENT AUTO 52 % (41-73); Platelet Count 95 K/mm3 (150-400); RDW Coefficient Variation 13.2 % (11.7-14.2); RDW Standard Deviation 42.3 fL (35.1-46.3); White Blood Cell Count 3.41 K/mm3 (4.00-11.30)
[2023-05-18 09:01] LABS: Albumin, Blood 2.7 g/dL (3.4-5.0); Albumin/Globulin Ratio 0.8 (0.8-1.8); Bilirubin, Total 0.4 mg/dL (0.1-1.0); Bun/Creatinine Ratio 46.7 (12.0-20.0); Calcium, Blood 9.1 mg/dL (8.5-10.1); Creatinine, Blood 0.3 mg/dL (0.40-1.00); Globulin, Blood 3.6 g/dL (2.2-4.0); Potassium, Blood 3.2 mmol/L (3.5-5.5); Total Protein, Blood 6.3 g/dL (6.4-8.2)
--- NOTE | 2023-05-18 10:34 | NUR ---
CARE ASSUMPTION this rn assumed care at 0700. vital signs stable. tele sinus rhythm with pacs in the 70s. caridzem drip infusing at 5 at this time. cardizem turned off at 0945, after patient had recieved morning dose of oral metoprolol. patient is alert and oriented x4. perrla. patient is able to make needs known and uses call light appropriately. patient reports numbness and tingling to extremities, stated having neuropathy at baseline. md brown made aware during morning rounds. patient reports no chest pain/pressure, shortness of breath or pain. see shift assessment for further detials. plan of care is up to date at this time.
--- NOTE | 2023-05-18 17:55 | NUR ---
shift summary patient neuro remains unchanged this shift. vital signs stable. tele sr. no acute changes this shift. plan of care remains up to date
[2023-05-19 03:27] VITALS: BP 120/74
[2023-05-19 04:03] LABS: BASOPHILS ABSOLUTE AUTO 0.03 K/mm3 (0.00-0.23); BASOPHILS PERCENT AUTO 1 % (0-2); EOSINOPHILS ABSOLUTE AUTO 0.09 K/mm3 (0.00-0.68); EOSINOPHILS PERCENT AUTO 2 % (0-6); Hematocrit 43.3 % (33.0-51.0); Hemoglobin 14.8 g/dL (11.5-16.0); IMMATURE GRAN ABSOLUTE AUTO 0.03 K/mm3 (0.00-0.10); IMMATURE GRAN PERCENT AUTO 1 % (0-1); LYMPHOCYTES ABSOLUTE AUTO 1.15 K/mm3 (0.84-5.20); LYMPHOCYTES PERCENT AUTO 29 % (21-46); MONOCYTES ABSOLUTE AUTO 0.39 K/mm3 (0.16-1.47); MONOCYTES PERCENT AUTO 10 % (4-13); Mean Corpuscular HGB 29.8 pg (26.0-34.0); Mean Corpuscular HGB Conc 34.2 g/dL (31.5-36.5); Mean Corpuscular Volume 87 fL (80-100); Mean Platelet Volume 10.4 fL (9.1-12.4); NEUTROPHILS ABSOLUTE AUTO 2.26 K/mm3 (1.96-9.15); NEUTROPHILS PERCENT AUTO 57 % (41-73); Platelet Count 112 K/mm3 (150-400); RDW Coefficient Variation 13.2 % (11.7-14.2); RDW Standard Deviation 42.1 fL (35.1-46.3); Red Blood Cell Count 4.96 M/mm3 (3.80-5.20); White Blood Cell Count 3.95 K/mm3 (4.00-11.30)
--- NOTE | 2023-05-19 04:42 | NUR ---
SHIFT SUMMARY PT ALERT AND ORIENTED X 4, COOPERATIVE WITH CARE AND ABLE TO MAKE NEEDS KNOWN. MARIANNA. SHE IS ON RA AND MAINTAING 02 SATURATION ABOVE 92%, SHE HAS DENIED SOB ALL SHIFT. PT'S HR WAS SR AT BEGINNING OF SHIFT AND CARDIZEM DRIP WAS NOT RUNNING. AT APPROXIMATELY 2038 PT CONVERTED TO AFIB VARRYING HR BETWEEN 100'S-180'S. CARDIZEM DRIP STARTED PER EMAR AND PT CONVERTED BACK TO SR AT APPROXIMATELY 2244. CARDIZEM DRIP WAS STOPPED AT ROUGHLY 0110 AND HR IS NOW SR AND 70'S-80'S. PT DENIED CHEST PAIN/PRESSURE/DIZZINESS ALL SHIFT. PT REPORTS HX NEUROPATHY IN HER BLE AND SAID SHE WAS EXPERIENCING SOME PAIN/NUMBNESS/TINGLING OF LOWER EXTREMITIES THIS SHIFT, BUT SHE SAID THAT IS NORMAL FOR HER. PT CURRENTLY RESTING IN BED WITH CALL LIGHT WITHIN REACH.
[2023-05-19 04:45] LABS: Albumin, Blood 3.2 g/dL (3.4-5.0); Albumin/Globulin Ratio 0.7 (0.8-1.8); Bilirubin, Total 0.3 mg/dL (0.1-1.0); Bun/Creatinine Ratio 35.5 (12.0-20.0); Calcium, Blood 9.8 mg/dL (8.5-10.1); Creatinine, Blood 0.37 mg/dL (0.40-1.00); Globulin, Blood 4.3 g/dL (2.2-4.0); Potassium, Blood 3.2 mmol/L (3.5-5.5); Total Protein, Blood 7.5 g/dL (6.4-8.2)
[2023-05-19 07:44] VITALS: BP 111/63
[2023-05-19 11:11] VITALS: BP 123/71
[2023-05-19] MEDS ORDERED: CEPH500 PO (13:43)
== END 2023-05-19 14:35 | disposition home or self-care (01) | DRG 310 ==
LOC: ER 19:57 → PCU 05-17 03:11
PROVIDERS: Hospitalist; Student in an Organized Health Care Education/Training Program; ADMIT Internal Medicine
PROC: 4A033R1 Measurement of Arterial Saturation, Peripheral, Percutaneous Approach (ICD-10-PCS; principal; 2023-05-17)
DX: I48.20 Chronic atrial fibrillation, unspecified (principal); I10 Essential (primary) hypertension; I25.10 Atherosclerotic heart disease of native coronary artery without angina pectoris; E10.9 Type 1 diabetes mellitus without complications; F32.9 Major depressive disorder, single episode, unspecified; F43.10 Post-traumatic stress disorder, unspecified; G43.909 Migraine, unspecified, not intractable, without status migrainosus; I25.2 Old myocardial infarction; E78.5 Hyperlipidemia, unspecified; Z91.148 Patient's other noncompliance with medication regimen for other reason; Z79.4 Long term (current) use of insulin; Z85.41 Personal history of malignant neoplasm of cervix uteri; Z87.891 Personal history of nicotine dependence
CPT/HCPCS: 36415; 36600; 71046; 80053; 81001; 82010; 82803; 82947; 83036; 83735; 83880; 84484; 85025; 87086; 93005; 93010; 93306; 96365; 96366; 96375; 96376; 99285-25; A9270; G0378; J1815; J7030; J7040

== ENCOUNTER 2023-06-16 16:50 | Emergency (ER) | payer OTHER ==
[~2023-06-16] VITALS: Ht 165.1 cm; Wt 72.6 kg
[~2023-06-16 16:50] MED LIST changes: +FUROSEMIDE20 MG PO; +INSULIN GL100 UNIT/2 SC; +NOVOLOG FL100 UNIT/3 SC
[2023-06-16] MEDS ORDERED: Diltiazem HCl 5 MG / ML 5ML Vial IV ONE (17:40)
[2023-06-16] MEDS ORDERED: NS 1,000 ML IV SCH (17:40)
[2023-06-16 18:00] LABS: BASOPHILS ABSOLUTE AUTO 0.03 K/mm3 (0.00-0.23); BASOPHILS PERCENT AUTO 1 % (0-2); EOSINOPHILS ABSOLUTE AUTO 0.13 K/mm3 (0.00-0.68); EOSINOPHILS PERCENT AUTO 3 % (0-6); Hematocrit 39.1 % (33.0-51.0); Hemoglobin 13.6 g/dL (11.5-16.0); IMMATURE GRAN ABSOLUTE AUTO 0.01 K/mm3 (0.00-0.10); IMMATURE GRAN PERCENT AUTO 0 % (0-1); LYMPHOCYTES ABSOLUTE AUTO 1.87 K/mm3 (0.84-5.20); LYMPHOCYTES PERCENT AUTO 38 % (21-46); MONOCYTES ABSOLUTE AUTO 0.58 K/mm3 (0.16-1.47); MONOCYTES PERCENT AUTO 12 % (4-13); Mean Corpuscular HGB 30.2 pg (26.0-34.0); Mean Corpuscular HGB Conc 34.8 g/dL (31.5-36.5); Mean Corpuscular Volume 87 fL (80-100); Mean Platelet Volume 11.9 fL (9.1-12.4); NEUTROPHILS ABSOLUTE AUTO 2.36 K/mm3 (1.96-9.15); NEUTROPHILS PERCENT AUTO 47 % (41-73); Platelet Count 100 K/mm3 (150-400); RDW Coefficient Variation 13.1 % (11.7-14.2); RDW Standard Deviation 41.6 fL (35.1-46.3); Red Blood Cell Count 4.51 M/mm3 (3.80-5.20); White Blood Cell Count 4.98 K/mm3 (4.00-11.30)
[2023-06-16 18:14] LABS: Albumin, Blood 3.1 g/dL (3.4-5.0); Albumin/Globulin Ratio 0.9 (0.8-1.8); Bilirubin, Total 0.4 mg/dL (0.1-1.0); Calcium, Blood 9.9 mg/dL (8.5-10.1); Creatinine, Blood 0.52 mg/dL (0.40-1.00); Globulin, Blood 3.6 g/dL (2.2-4.0); Potassium, Blood 3.3 mmol/L (3.5-5.5); Total Protein, Blood 6.7 g/dL (6.4-8.2)
[2023-06-16 20:30] VITALS: BP 115/59
== END 2023-06-16 21:01 | disposition home or self-care (01) ==
LOC: ER 16:50
PROVIDERS: Emergency Medicine
DX: I48.20 Chronic atrial fibrillation, unspecified (principal); E10.9 Type 1 diabetes mellitus without complications; I10 Essential (primary) hypertension; I25.10 Atherosclerotic heart disease of native coronary artery without angina pectoris; I25.2 Old myocardial infarction; E78.5 Hyperlipidemia, unspecified; F32.9 Major depressive disorder, single episode, unspecified; Z88.8 Allergy status to other drugs, medicaments and biological substances; Z88.0 Allergy status to penicillin; Z88.5 Allergy status to narcotic agent; Z91.048 Other nonmedicinal substance allergy status; Z79.01 Long term (current) use of anticoagulants; Z79.899 Other long term (current) drug therapy; Z79.890 Hormone replacement therapy; Z79.4 Long term (current) use of insulin
CPT/HCPCS: 70450; 71045; 80053; 83880; 84484; 85025; 93005; 93010; 96361; 96374; 99285-25; J7030

== ENCOUNTER 2024-05-19 14:21 | Inpatient (IN) | payer OTHER ==
[~2024-05-19] VITALS: Ht 165.1 cm; Wt 75.9 kg
[2024-05-19 15:26] LABS: BASOPHILS ABSOLUTE AUTO 0.03 K/mm3 (0.00-0.23); BASOPHILS PERCENT AUTO 1 % (0-2); EOSINOPHILS ABSOLUTE AUTO 0.13 K/mm3 (0.00-0.68); EOSINOPHILS PERCENT AUTO 3 % (0-6); Hematocrit 39.3 % (33.0-51.0); Hemoglobin 13.5 g/dL (11.5-16.0); IMMATURE GRAN ABSOLUTE AUTO 0.03 K/mm3 (0.00-0.10); IMMATURE GRAN PERCENT AUTO 1 % (0-1); LYMPHOCYTES PERCENT AUTO 32 % (21-46); MONOCYTES ABSOLUTE AUTO 0.57 K/mm3 (0.16-1.47); MONOCYTES PERCENT AUTO 12 % (4-13); Mean Corpuscular HGB Conc 34.4 g/dL (31.5-36.5); Mean Corpuscular Volume 85 fL (80-100); Mean Platelet Volume 10.9 fL (9.1-12.4); NEUTROPHILS ABSOLUTE AUTO 2.58 K/mm3 (1.96-9.15); NEUTROPHILS PERCENT AUTO 52 % (41-73); Platelet Count 109 K/mm3 (150-400); RDW Coefficient Variation 13.6 % (11.7-14.2); RDW Standard Deviation 41.8 fL (35.1-46.3); Red Blood Cell Count 4.65 M/mm3 (3.80-5.20); White Blood Cell Count 4.94 K/mm3 (4.00-11.30)
[2024-05-19] MEDS ORDERED: MethylPREDNISolone Sod Succ 125 MG Vial IV ONE (15:30)
[2024-05-19] MEDS ORDERED: DiphenhydrAMINE HCl 50 MG/ML 1ML Vial IV ONE (15:30)
[2024-05-19 15:43] LABS: Albumin, Blood 3.1 g/dL (3.4-5.0); Albumin/Globulin Ratio 0.8 (0.8-1.8); Bilirubin, Total 0.5 mg/dL (0.1-1.0); Bun/Creatinine Ratio 23.8 (12.0-20.0); Calcium, Blood 9.9 mg/dL (8.5-10.1); Creatinine, Blood 0.59 mg/dL (0.40-1.00); Globulin, Blood 3.7 g/dL (2.2-4.0); Potassium, Blood 3.7 mmol/L (3.5-5.5); Total Protein, Blood 6.8 g/dL (6.4-8.2)
[2024-05-19] MEDS ORDERED: NS 1,000 ML IV SCH ×2 (15:55→18:30)
[2024-05-19 16:09] LABS: International Normalized Ratio 1.14; Prothrombin Time Results 12.1 Sec (9.7-11.5)
[2024-05-19] MEDS ORDERED: Aspirin 81 MG Chew PO ONE (17:45)
[2024-05-19] MEDS ORDERED: Metoprolol Tartrate 1 MG/ML 5 ML VIAL IV PRN (18:25)
[2024-05-19] MEDS ORDERED: Ondansetron HCl 2 MG / ML 2ML Vial IV PRN (18:30)
[2024-05-19 19:00] VITALS: BP 119/69
[2024-05-19] MEDS ORDERED: Potassium Chloride 20 MEQ TabCR PO ONE (19:00)
[2024-05-19 20:00] VITALS: BP 102/62
[2024-05-19 21:00] VITALS: BP 110/65
[2024-05-19] MEDS ORDERED: Metoprolol Succinate 50 MG TABCR PO SCH (21:00)
[2024-05-19] MEDS ORDERED: Insulin Glargine-Yfgn 100 Unit/mL 3 ML SYR SC SCH (21:00)
[2024-05-19 22:00] VITALS: BP 131/70
[2024-05-19 23:00] VITALS: BP 127/71
[2024-05-20] VITALS (7 sets, daily range): BP systolic 109–148; BP diastolic 68–84
[2024-05-20 04:23] LABS: Hematocrit 39.3 % (33.0-51.0); Hemoglobin 13.1 g/dL (11.5-16.0); Mean Corpuscular HGB 28.9 pg (26.0-34.0); Mean Corpuscular HGB Conc 33.3 g/dL (31.5-36.5); Mean Corpuscular Volume 87 fL (80-100); Mean Platelet Volume 11.4 fL (9.1-12.4); Platelet Count 101 K/mm3 (150-400); RDW Coefficient Variation 13.3 % (11.7-14.2); RDW Standard Deviation 42.3 fL (35.1-46.3); Red Blood Cell Count 4.53 M/mm3 (3.80-5.20)
[2024-05-20 05:15] LABS: Albumin/Globulin Ratio 0.8 (0.8-1.8); Bilirubin, Total 0.5 mg/dL (0.1-1.0); Calcium, Blood 9.1 mg/dL (8.5-10.1); Creatinine, Blood 0.54 mg/dL (0.40-1.00); Globulin, Blood 3.8 g/dL (2.2-4.0); Total Protein, Blood 6.8 g/dL (6.4-8.2)
[2024-05-20] MEDS ORDERED: Levothyroxine Sodium 0.05 MG Tab PO SCH (06:00)
--- NOTE | 2024-05-20 06:41 | NUR ---
END OF SHIFT SUMMARY. NO ACUTE EVENTS OVERNIGHT. PT FREQUENTLY PROVIDED PO FLUIDS AND FOODS PER REQUEST. TOLERATED PO INTAKE WELL. PT ALERT/ ORIENTED AND COOPERATIVE W/ CARE. PT REMAINS ON ROOM AIR W/ CLEAR LUNG SOUNDS. NSR VIA CONTINUOUS MONITOR. BP STABLE. PT AFEBRILE. PT UP TO RR W/ WALKER AND STAND BY ASSIST, HAD SMALL BM. GOOD OUTPUT VIA PUREWICK. CALL LIGHT W/ IN REACH. PLAN OF CARE ONGOING.
[2024-05-20] MEDS ORDERED: Insulin Human Lispro 100 Units/ML 3ML Syringe SC SCH ×4 (07:30→17:30)
[2024-05-20] MEDS ORDERED: Clopidogrel Bisulfate 75 MG Tab PO SCH (09:00)
[2024-05-20] MEDS ORDERED: Rivaroxaban 10 MG Tab PO SCH (09:00)
[2024-05-20] MEDS ORDERED: Atorvastatin 40 MG Tab PO SCH (09:00)
--- NOTE | 2024-05-20 09:49 | NUR ---
ASSUMPTION OF CARE: ASSUMED CARE OF PT AT 0710. PT ALERT AND ORIENTED, FOLLOWS DIRECTION AND MAKES NEEDS KNOWN. PT VERY TEARFUL AT TIMES AND OFTEN APOLOGIZES FOR CRYING. STATES SHE IS OVERWHELMED BY EVERYTHING THAT HAS LED TO HER BEING HOSPITALIZED. PT ON RA WITH SPO2 MID TO HIGH 90'S. DENIES SOB. MOLD FINISHER IN PLACE, SR WITH HR 80'S. SBP 120-140'S. ENDORSES DULL PAIN IN RIGHT SHOULDER BLADE, DR ROWLEY AWARE. TOLERATING PO INTAKE. SPEECH THERAPY AT BEDSIDE THIS AM FOR SPEECH EVAL. PUREWICK IN PLACE DRAINING YELLOW URINE. NO BM YET. PIV TO LAC PATENT AND SALINE LOCKED. AWAITING MRI AND ECHO. BED LOW AND LOCKED, CALL LIGHT IN REACH.
[2024-05-20] MEDS ORDERED: METO100ER PO (10:46)
[2024-05-20] MEDS ORDERED: Vitamin D1000 UNI1 PO (10:48)
[2024-05-20] MEDS ORDERED: HUMALOG KW100 UNIT/1 SC (17:53)
--- NOTE | 2024-05-20 18:29 | NUR ---
DISCHARGE: PT DISCHARGED HOME WITH NITA DIAZ AT 1825. PT TAKEN BY WHEELCHAIR TO PERSONAL CAR. ALL BELONGINGS SENT HOME WITH PT. PIV TO LAC REMOVED BEFORE DISCHARGE. DISCHARGE PACKET SENT HOME WITH PT. PT HAD NO CONCERNS OR QUESTIONS.
[2024-05-20] MEDS ORDERED: Pregabalin 50 MG Capsule PO SCH (21:00)
[2024-05-20] MEDS ORDERED: DULoxetine HCL 60 MG Capsule DR PO SCH (21:00)
[2024-05-21] MEDS ORDERED: Cholecalciferol 1000 Unit Tablet (=25MCG) PO SCH (09:00)
== END 2024-05-20 18:40 | disposition home or self-care (01) | DRG 312 ==
LOC: ER 14:21 → ICUE 14:22 → ERHOLD 14:22 → ICUE 21:20
PROVIDERS: Nurse Practitioner Acute Care; Physician Assistant; Student in an Organized Health Care Education/Training Program; ADMIT Internal Medicine
DX: I95.1 Orthostatic hypotension (principal); G45.9 Transient cerebral ischemic attack, unspecified; I47.10 Supraventricular tachycardia, unspecified; E78.5 Hyperlipidemia, unspecified; E03.9 Hypothyroidism, unspecified; I48.0 Paroxysmal atrial fibrillation; E10.9 Type 1 diabetes mellitus without complications; I25.10 Atherosclerotic heart disease of native coronary artery without angina pectoris; I10 Essential (primary) hypertension; F32.9 Major depressive disorder, single episode, unspecified; K74.60 Unspecified cirrhosis of liver; E10.42 Type 1 diabetes mellitus with diabetic polyneuropathy; E10.65 Type 1 diabetes mellitus with hyperglycemia; Z88.8 Allergy status to other drugs, medicaments and biological substances; Z88.5 Allergy status to narcotic agent; Z88.0 Allergy status to penicillin; Z79.01 Long term (current) use of anticoagulants; Z79.890 Hormone replacement therapy; Z79.02 Long term (current) use of antithrombotics/antiplatelets; Z79.4 Long term (current) use of insulin; I25.2 Old myocardial infarction; Z85.42 Personal history of malignant neoplasm of other parts of uterus; Z85.41 Personal history of malignant neoplasm of cervix uteri; Z87.891 Personal history of nicotine dependence
CPT/HCPCS: 36415; 70450; 70496; 70498; 70551; 71275; 74175; 80053; 82947; 83036; 83735; 84443; 84484; 85025; 85027; 85610; 85730; 92610; 93005; 93010; 93306; 96361; 96374; 96375; 99291-25; A9270; J1200; J1815; J2919; J7030; Q9967

== ENCOUNTER 2024-08-11 12:11 | Emergency (ER) | payer OTHER ==
[~2024-08-11] VITALS: Ht 165.1 cm; Wt 76.2 kg
[~2024-08-11 12:11] MED LIST changes: +HUMALOG KW100 UNIT/1 SC; +METO100ER PO
[2024-08-11] MEDS ORDERED: MIDODRINE HCL 5 MG T (12:59)
[2024-08-11 13:06] LABS: BASOPHILS ABSOLUTE AUTO 0.03 K/mm3 (0.00-0.23); BASOPHILS PERCENT AUTO 1 % (0-2); EOSINOPHILS ABSOLUTE AUTO 0.07 K/mm3 (0.00-0.68); EOSINOPHILS PERCENT AUTO 2 % (0-6); Hematocrit 32.8 % (33.0-51.0); Hemoglobin 9.9 g/dL (11.5-16.0); IMMATURE GRAN ABSOLUTE AUTO 0.02 K/mm3 (0.00-0.10); IMMATURE GRAN PERCENT AUTO 1 % (0-1); LYMPHOCYTES ABSOLUTE AUTO 0.87 K/mm3 (0.84-5.20); LYMPHOCYTES PERCENT AUTO 25 % (21-46); MONOCYTES PERCENT AUTO 12 % (4-13); Mean Corpuscular HGB 22.9 pg (26.0-34.0); Mean Corpuscular HGB Conc 30.2 g/dL (31.5-36.5); Mean Corpuscular Volume 76 fL (80-100); Mean Platelet Volume 10.4 fL (9.1-12.4); NEUTROPHILS PERCENT AUTO 60 % (41-73); Platelet Count 104 K/mm3 (150-400); RDW Coefficient Variation 16.3 % (11.7-14.2); RDW Standard Deviation 44.8 fL (35.1-46.3); Red Blood Cell Count 4.32 M/mm3 (3.80-5.20); White Blood Cell Count 3.49 K/mm3 (4.00-11.30)
[2024-08-11] MEDS ORDERED: Diltiazem HCl 5 MG / ML 5ML Vial IV ONE ×2 (13:30→14:05)
[2024-08-11 13:51] LABS: Albumin, Blood 3.3 g/dL (3.4-5.0); Albumin/Globulin Ratio 0.9 (0.8-1.8); Bilirubin, Total 0.4 mg/dL (0.1-1.0); Bun/Creatinine Ratio 20.8 (12.0-20.0); Calcium, Blood 8.9 mg/dL (8.5-10.1); Creatinine, Blood 0.48 mg/dL (0.40-1.00); Globulin, Blood 3.7 g/dL (2.2-4.0); Potassium, Blood 3.6 mmol/L (3.5-5.5)
[2024-08-11 15:15] VITALS: BP 120/63
[2024-08-11] MEDS ORDERED: Amiodarone HCl200 MG PO (15:29)
[2024-08-11] MEDS ORDERED: Amiodarone HCl 200 MG Tab PO ONE (15:30)
[2024-08-11] MEDS ORDERED: Amiodarone HCl 200 MG Tab PO SCH (21:00)
[2024-08-25] MEDS ORDERED: Amiodarone HCl 200 MG Tab PO SCH (09:00)
[2024-09-08] MEDS ORDERED: Amiodarone HCl 200 MG Tab PO SCH (09:00)
== END 2024-08-11 16:17 | disposition home or self-care (01) ==
LOC: ER 12:11
PROVIDERS: Emergency Medicine
DX: I48.20 Chronic atrial fibrillation, unspecified (principal); I10 Essential (primary) hypertension; E10.9 Type 1 diabetes mellitus without complications; E78.5 Hyperlipidemia, unspecified; Z87.891 Personal history of nicotine dependence; Z88.5 Allergy status to narcotic agent; Z88.1 Allergy status to other antibiotic agents; Z88.2 Allergy status to sulfonamides; Z88.0 Allergy status to penicillin; Z88.9 Allergy status to unspecified drugs, medicaments and biological substances; Z79.899 Other long term (current) drug therapy; Z79.890 Hormone replacement therapy; Z79.1 Long term (current) use of non-steroidal anti-inflammatories (NSAID); Z79.2 Long term (current) use of antibiotics
CPT/HCPCS: 71046; 80053; 84484; 85025; 93005; 93010; 96374; 96376; 99285-25; A9270

== ENCOUNTER 2024-11-30 21:27 | Emergency (ER) | payer OTHER ==
[~2024-11-30] VITALS: Ht 165.1 cm; Wt 72.1 kg
[~2024-11-30 21:27] MED LIST changes: +MIDODRINE HCL 5 MG T
[2024-11-30] MEDS ORDERED: NS 1,000 ML IV SCH ×2 (21:50→23:55)
[2024-11-30 22:03] LABS: pH Blood Venous 7.37 (7.34-7.37)
[2024-11-30 22:05] LABS: BASOPHILS ABSOLUTE AUTO 0.05 K/mm3 (0.00-0.23); BASOPHILS PERCENT AUTO 1 % (0-2); EOSINOPHILS ABSOLUTE AUTO 0.10 K/mm3 (0.00-0.68); EOSINOPHILS PERCENT AUTO 2 % (0-6); Hematocrit 38.3 % (33.0-51.0); Hemoglobin 11.9 g/dL (11.5-16.0); IMMATURE GRAN ABSOLUTE AUTO 0.02 K/mm3 (0.00-0.10); IMMATURE GRAN PERCENT AUTO 0 % (0-1); LYMPHOCYTES ABSOLUTE AUTO 1.66 K/mm3 (0.84-5.20); LYMPHOCYTES PERCENT AUTO 33 % (21-46); MONOCYTES ABSOLUTE AUTO 0.61 K/mm3 (0.16-1.47); MONOCYTES PERCENT AUTO 12 % (4-13); Mean Corpuscular HGB Conc 31.1 g/dL (31.5-36.5); Mean Corpuscular Volume 74 fL (80-100); NEUTROPHILS ABSOLUTE AUTO 2.58 K/mm3 (1.96-9.15); NEUTROPHILS PERCENT AUTO 51 % (41-73); NRBC ABSOLUTE 0.00 K/mm3 (0.00-0.02); NRBC Auto 0.0 /100 WBC (0.0-0.2); Platelet Count 151 K/mm3 (150-400); RDW Coefficient Variation 19.1 % (11.7-14.2); RDW Standard Deviation 50.2 fL (35.1-46.3)
[2024-11-30 22:42] LABS: Alanine Aminotransfer (ALT/SGP 38.0 U/L (12-78); Albumin, Blood 3.4 g/dL (3.4-5.0); Albumin/Globulin Ratio 0.8 (0.8-1.8); Anion Gap 11.0 mmol/L (3-11); Aspartate Aminotrans (AST/SGOT 30.0 U/L (12-37); Bilirubin, Total 0.7 mg/dL (0.1-1.0); Blood Urea Nitrogen 15.0 mg/dL (8-24); CO2, Blood 27.0 mmol/L (21-32); Calcium, Blood 9.1 mg/dL (8.5-10.1); Chloride, Blood 91.0 mmol/L (98-108); Creatinine, Blood 0.57 mg/dL (0.40-1.00); Globulin, Blood 4.3 g/dL (2.2-4.0); Glucose, Blood 642.0 mg/dL (70-99); Potassium, Blood 4.4 mmol/L (3.5-5.5); Sodium, Blood 125.0 mmol/L (136-145); Total Protein, Blood 7.7 g/dL (6.4-8.2)
[2024-11-30] MEDS ORDERED: Insulin Regular 100 Unit/ML 1ML Dose IV ONE (22:50)
[2024-12-01 00:30] VITALS: BP 115/60
[2024-12-01 01:18] LABS: Glucose, Blood 326 mg/dL (70-99)
== END 2024-12-01 02:23 | disposition home or self-care (01) ==
LOC: ER 21:27
PROVIDERS: Emergency Medicine; Student in an Organized Health Care Education/Training Program
DX: E10.65 Type 1 diabetes mellitus with hyperglycemia (principal); E10.40 Type 1 diabetes mellitus with diabetic neuropathy, unspecified; Z79.4 Long term (current) use of insulin; I48.91 Unspecified atrial fibrillation; I10 Essential (primary) hypertension; E78.5 Hyperlipidemia, unspecified; Z79.899 Other long term (current) drug therapy; Z88.0 Allergy status to penicillin; Z88.5 Allergy status to narcotic agent; Z91.041 Radiographic dye allergy status; Z88.8 Allergy status to other drugs, medicaments and biological substances; Z90.49 Acquired absence of other specified parts of digestive tract; Z87.891 Personal history of nicotine dependence; F43.10 Post-traumatic stress disorder, unspecified
CPT/HCPCS: 70450; 71046; 73502; 80053; 82010; 82803; 82947; 83690; 83880; 84484; 85025; 93005; 93010; 96360; 96361; 99284-25; J1815; J7030

== ENCOUNTER 2025-01-31 21:20 | Emergency (ER) | payer OTHER ==
[~2025-01-31] VITALS: Ht 165.1 cm; Wt 76.7 kg
[2025-01-31 21:26] VITALS: BP 128/57
== END 2025-01-31 23:55 | disposition home or self-care (01) ==
LOC: ER 21:20
DX: S82.841A Displaced bimalleolar fracture of right lower leg, initial encounter for closed fracture (principal); I10 Essential (primary) hypertension; E78.5 Hyperlipidemia, unspecified; I48.91 Unspecified atrial fibrillation; I69.351 Hemiplegia and hemiparesis following cerebral infarction affecting right dominant side; Z88.0 Allergy status to penicillin; Z88.5 Allergy status to narcotic agent; Z88.8 Allergy status to other drugs, medicaments and biological substances; Z91.041 Radiographic dye allergy status; Z91.048 Other nonmedicinal substance allergy status; Z79.01 Long term (current) use of anticoagulants; Z79.890 Hormone replacement therapy; Z79.02 Long term (current) use of antithrombotics/antiplatelets; Z79.4 Long term (current) use of insulin; Z79.899 Other long term (current) drug therapy; W18.39XA Other fall on same level, initial encounter
CPT/HCPCS: 27810; 73030; 73610; 73630; 99284-25

== ENCOUNTER 2025-02-02 22:02 | Emergency (ER) | payer OTHER ==
[~2025-02-02] VITALS: Ht 165.1 cm; Wt 83.9 kg
[2025-02-02 22:37] LABS: BASOPHILS ABSOLUTE AUTO 0.03 K/mm3 (0.00-0.23); BASOPHILS PERCENT AUTO 1 % (0-2); EOSINOPHILS ABSOLUTE AUTO 0.07 K/mm3 (0.00-0.68); EOSINOPHILS PERCENT AUTO 1 % (0-6); Hematocrit 38.4 % (33.0-51.0); Hemoglobin 12.5 g/dL (11.5-16.0); IMMATURE GRAN ABSOLUTE AUTO 0.03 K/mm3 (0.00-0.10); IMMATURE GRAN PERCENT AUTO 1 % (0-1); LYMPHOCYTES ABSOLUTE AUTO 1.01 K/mm3 (0.84-5.20); LYMPHOCYTES PERCENT AUTO 21 % (21-46); MONOCYTES ABSOLUTE AUTO 0.81 K/mm3 (0.16-1.47); MONOCYTES PERCENT AUTO 17 % (4-13); Mean Corpuscular HGB Conc 32.6 g/dL (31.5-36.5); Mean Corpuscular Volume 81 fL (80-100); NEUTROPHILS ABSOLUTE AUTO 2.97 K/mm3 (1.96-9.15); NEUTROPHILS PERCENT AUTO 60 % (41-73); NRBC ABSOLUTE 0.00 K/mm3 (0.00-0.02); NRBC Auto 0.0 /100 WBC (0.0-0.2); Platelet Count 95 K/mm3 (150-400); RDW Coefficient Variation 19.2 % (11.7-14.2); RDW Standard Deviation 56.5 fL (35.1-46.3)
[2025-02-02 23:00] VITALS: BP 142/70
[2025-02-02 23:07] LABS: Source, Urine Clean Catch
[2025-02-02 23:21] LABS: Bilirubin, Urine Neg (Neg); Glucose Qualitative, Urine 4+ (Neg); Ketones, Urine Neg (Neg); Leukocyte Esterase, Urine 1+ (Neg); Protein, Urine Neg (Neg); Specific Gravity, Urine 1.010 (1.003-1.022); Urobilinogen, Urine NORM (Normal)
[2025-02-02 23:29] LABS: Alanine Aminotransfer (ALT/SGP 51.0 U/L (12-78); Albumin, Blood 3.2 g/dL (3.4-5.0); Albumin/Globulin Ratio 0.8 (0.8-1.8); Anion Gap 10.0 mmol/L (3-11); Aspartate Aminotrans (AST/SGOT 50.0 U/L (12-37); Bilirubin, Total 0.6 mg/dL (0.1-1.0); Blood Urea Nitrogen 11.0 mg/dL (8-24); CO2, Blood 30.0 mmol/L (21-32); Calcium, Blood 9.2 mg/dL (8.5-10.1); Chloride, Blood 93.0 mmol/L (98-108); Creatinine, Blood 0.5 mg/dL (0.40-1.00); Globulin, Blood 4.2 g/dL (2.2-4.0); Glucose, Blood 611.0 mg/dL (70-99); Potassium, Blood 3.8 mmol/L (3.5-5.5); Sodium, Blood 129.0 mmol/L (136-145); Total Protein, Blood 7.4 g/dL (6.4-8.2)
[2025-02-02 23:33] LABS: Color, Urine Pale Yellow (P-Yellow)
[2025-02-02 23:34] LABS: Red Blood Cells, Urine 0-2 /hpf (0-2); Yeast/Fungi Urine Many /hpf
[2025-02-03] MEDS ORDERED: Insulin Human Lispro 100 Units/ML 3ML Syringe SC ONE (00:05)
[2025-02-03] MEDS ORDERED: Morphine Sulfate 4 MG/1 ML Injection IV ONE (00:05)
== END 2025-02-03 01:18 | disposition home or self-care (01) ==
LOC: ER 22:02
PROVIDERS: Student in an Organized Health Care Education/Training Program
DX: E10.65 Type 1 diabetes mellitus with hyperglycemia (principal); R35.0 Frequency of micturition; F43.10 Post-traumatic stress disorder, unspecified; I25.2 Old myocardial infarction; E10.40 Type 1 diabetes mellitus with diabetic neuropathy, unspecified; E78.5 Hyperlipidemia, unspecified; I10 Essential (primary) hypertension; Z87.891 Personal history of nicotine dependence; Z79.4 Long term (current) use of insulin; Z79.899 Other long term (current) drug therapy; Z79.02 Long term (current) use of antithrombotics/antiplatelets; Z88.8 Allergy status to other drugs, medicaments and biological substances; Z88.0 Allergy status to penicillin; Z91.041 Radiographic dye allergy status; Z88.5 Allergy status to narcotic agent
CPT/HCPCS: 70450; 71046; 80053; 81001; 82140; 83605; 84484; 85025; 87086; 93005; 93010; 96374; 99285-25; A9270; J1815; J2270

== ENCOUNTER 2025-02-07 08:10 | Day surgery (SDC) | payer OTHER ==
[~2025-02-07] VITALS: Ht 165.1 cm; Wt 85.4 kg
[2025-02-07] MEDS ORDERED: TRAM50 (08:40)
[2025-02-07] MEDS ORDERED: Midazolam HCL 1 MG/ML 5MLVIAL ONE (09:13)
[2025-02-07] MEDS ORDERED: Insulin Regular 100 UNIT/ML 10ML Vial ONE (09:18)
[2025-02-07] MEDS ORDERED: Dexmedetomidine HCL 200 MCG / 2 ML ONE (09:20)
[2025-02-07] MEDS ORDERED: FentaNYL Citrate 50 MCG/ML 2 ML Injection ONE (09:53)
[2025-02-07] MEDS ORDERED: Rocuronium Bromide 10 MG/ML 5ML Injection IV ONE (09:54)
[2025-02-07] MEDS ORDERED: CeFAZolin Sodium 2,000 MG VIAL ONE (09:58)
[2025-02-07] MEDS ORDERED: Phenylephrine HCl 100 MCG/ML-NS 10MLSYR (1MG/10ML) ONE (10:46)
[2025-02-07] MEDS ORDERED: Sugammadex Sodium 200 MG/2ML SDV (100 MG/ML) ONE (11:10)
[2025-02-07] MEDS ORDERED: Ondansetron HCl 2 MG / ML 2ML Vial ONE (11:11)
--- NOTE | 2025-02-07 12:14 | NUR ---
02/07/25 1214 Hallie Schmidt ICE PACK APPLIED TO RIGHT LEG. RIGHT LEG ELEVATED ON PILLOW. PT DROWSY UPON ARRIVAL TO PACU. VERBAL ORDER FROM [facility] FOR FSBS UPON ARRIVAL. FSBS 205 AT 1153, [facility] AWARE. PT WARM AND CLAMMY UPON ARRIVAL TO PACU. VERBAL ORDER FOR FSBS PRIOR TO DISCHARGE AND POTASSIUM DRAW PRIOR TO DISCHARGE. PT CURRENTLY ANSWERS QUESTIONS. PER REPORT, PT WAS DROWSY PRIOR TO SURGERY.
--- NOTE | 2025-02-07 12:44 | NUR ---
02/07/25 1243 Hallie Schmidt DAUGHTER BROUGHT TO BEDSIDE. PT TOLERATING ORAL FLUIDS AND SNACKS WELL.
[2025-02-07 13:26] VITALS: BP 110/86
== END 2025-02-07 13:39 | disposition home or self-care (01) ==
LOC: ORSCSDS 08:10
PROVIDERS: Orthopaedic Surgery
PROC: 0QSG04Z Reposition Right Tibia with Internal Fixation Device, Open Approach (ICD-10-PCS; principal; 2025-02-07 10:00)
PROC: 0QSJ04Z Reposition Right Fibula with Internal Fixation Device, Open Approach (ICD-10-PCS; principal; 2025-02-07 10:00)
DX: S82.841A Displaced bimalleolar fracture of right lower leg, initial encounter for closed fracture (principal); I12.9 Hypertensive chronic kidney disease with stage 1 through stage 4 chronic kidney disease, or unspecified chronic kidney disease; E11.22 Type 2 diabetes mellitus with diabetic chronic kidney disease; N18.9 Chronic kidney disease, unspecified; Z79.4 Long term (current) use of insulin; Z86.73 Personal history of transient ischemic attack (TIA), and cerebral infarction without residual deficits; Z79.899 Other long term (current) drug therapy
CPT/HCPCS: 82947; 84132; A9270; C1713; C1769; J0690; J1815; J2250; J2371; J2405; J2704; J3010; J7120

== ENCOUNTER → 2025-03-27 | Outpatient (CLI) | payer OTHER ==
[~2025-03-27] MED LIST changes: +TRAM50
[2025-03-27 17:52] LABS: Alanine Aminotransfer (ALT/SGP 46.0 U/L (12-78); Albumin, Blood 3.1 g/dL (3.4-5.0); Albumin/Globulin Ratio 0.9 (0.8-1.8); Anion Gap 8.0 mmol/L (3-11); Aspartate Aminotrans (AST/SGOT 48.0 U/L (12-37); Bilirubin, Total 0.3 mg/dL (0.1-1.0); Blood Urea Nitrogen 13.0 mg/dL (8-24); CO2, Blood 29.0 mmol/L (21-32); Calcium, Blood 9.1 mg/dL (8.5-10.1); Chloride, Blood 103.0 mmol/L (98-108); Creatinine, Blood 0.61 mg/dL (0.40-1.00); Globulin, Blood 3.6 g/dL (2.2-4.0); Glucose, Blood 190.0 mg/dL (70-99); Potassium, Blood 4.2 mmol/L (3.5-5.5); Sodium, Blood 136.0 mmol/L (136-145); Total Protein, Blood 6.7 g/dL (6.4-8.2)
[2025-03-27 19:13] LABS: Creatinine, Urine Random 79.8 mg/dL (27.00-270.00); Microalb/Creat Ratio UR, Rand 56.14 mg/g (0.000-30.000); Microalbumin, Random Urine 44.8 mg/L (0.000-20.000)
== END ==
LOC: LAB SHORT 14:23 → LAB 14:23
PROVIDERS: Internal Medicine Endocrinology, Diabetes & Metabolism
DX: E10.65 Type 1 diabetes mellitus with hyperglycemia (principal); Z79.4 Long term (current) use of insulin
CPT/HCPCS: 80053; 82043; 82570; 83036